=== PATIENT | male | born 1945 | race American Indian/Alaskan Native ===

== ENCOUNTER 2020-05-29 13:39 | Inpatient (IN) | payer MEDICARE ==
[2020-05-29 14:42] LABS: Hematocrit 25.2 % (35.5-45.6); Hemoglobin 7.6 gm/dl (11.8-15.2); Mean Corpuscular HGB Conc 30 % (32-34); Mean Corpuscular Volume 72 fl (84-94); Platelet Count 198 K/mm3 (140-440); Red Blood Count 3.49 M/mm3 (3.65-5.03); Red Cell Distribution Width 19.9 % (13.2-15.2)
[2020-05-29 14:52] LABS: Calcium 9.1 mg/dL (8.4-10.2)
[2020-05-29 14:53] LABS: INR 1.54 (0.87-1.13)
--- NOTE | 2020-05-29 15:02 | XRay Report ---
CHEST 2 VIEWS INDICATION / CLINICAL INFORMATION: CHF. COMPARISON: None available. FINDINGS: SUPPORT DEVICES: None. HEART / MEDIASTINUM: There is mild cardiomegaly. There has been previous median sternotomy and mitral annular repair as well as possible CABG. LUNGS / PLEURA: There is mild pulmonary vascular congestion. There is no pleural effusion. No pneumot horax. ADDITIONAL FINDINGS: No significant additional findings. IMPRESSION: 1. Mild cardiomegaly and pulmonary vascular congestion that could indicate mild CHF. Signer Name: Deo Germain MD Signed: 05/29/2020 2:57 PM Workstation Name: [id number]
[2020-05-29] MEDS ORDERED: amLODIPine 10 MG TAB PO STA (17:17)
[2020-05-29] MEDS ORDERED: hydrALAZINE 25 MG TAB PO STA (17:17)
[2020-05-29] MEDS ORDERED: FUROSEMIDE 40 MG TAB PO STA (17:17)
[2020-05-29] MEDS ORDERED: ASPIRIN EC 325 MG TAB PO STA (17:17)
--- NOTE | 2020-05-29 17:24 | Emergency Department Report ---
ED General Adult HPI - General Chief complaint: Dyspnea/Respdistress Stated complaint: DIFFICULTY BREATHING/ANKLE SWOLLEN PUI?: No Time Seen by Provider: 05/29/20 17:02 Source: patient, RN notes reviewed, old records reviewed Mode of arrival: Ambulatory Limitations: No Limitations - History of Present Illness Initial comments: The patient was evaluated in the emergency department for symptoms described in the history of present illness. He/she was evaluated in the context of the global COVID-19 pandemic, which necessitated consideration that the patient might be at risk for infection with the virus that causes COVID-19. Institutional protocols and algorithms that pertain to the evaluation of patients at risk for COVID-19 are in a state of rapid change based on information released by regulatory bodies including the CDC and federal and state organizations. These policies and algorithms were followed during the patient's care in the emergency department. Please note that these policies, procedures and recommendations changed on a rapid basis. Patient is a 74-year-old gentleman. He is not known to myself previously. 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 He was previously followed in [place], and ran out of his prescription medications in February. He presents to the ER today with a primary complaint of painless shortness of breath. This has been present since February, therefore, symptoms present for 3-1/2 to 4 months. He denies headache, neck pain, chest pain, abdominal pain, he has exertional shortness of breath, orthopnea, "trouble sleeping at night", unintentional 10 pound gain, and lower extremity swelling. He denies DVT and pulmonary embolism risk factors. No colonoscopy that he is aware of. No hematemesis or bright red blood per rectum. -: Gradual, month(s) Location: left, right, lower extremity Severity scale (0 -10): 0 Consistency: constant Improves with: rest Worsens with: movement - Related Data Previous Rx's Medication Instructions Recorded Last Taken Type Potassium Chloride [K-Dur] 20 meq PO QDAY #30 tablet 10/29/15 Unknown Rx amLODIPine 10 mg PO DAILY #30 tablet 10/29/15 Unknown Rx Aspirin EC [Ecotrin] 325 mg PO QDAY #30 tablet 05/29/20 Unknown Rx Furosemide [Lasix TAB] 40 mg PO BID #60 tablet 05/29/20 Unknown Rx Metoprolol [Lopressor TAB] 50 mg PO BID #60 tablet 05/29/20 Unknown Rx amLODIPine 10 mg PO NOW #30 tablet 05/29/20 Unknown Rx hydrALAZINE [Apresoline TAB] 50 mg PO BID #60 tablet 05/29/20 Unknown Rx Allergies Allergy/AdvReac Type Severity Reaction Status Date / Time No Known Allergies Allergy Verified 10/24/15 00:53 ED Review of Systems ROS: Stated complaint: DIFFICULTY BREATHING/ANKLE SWOLLEN Other details as noted in HPI Constitutional: denies: fever Eyes: denies: eye discharge, vision change ENT: denies: epistaxis Respiratory: shortness of breath, SOB with exertion, SOB at rest Cardiovascular: dyspnea on exertion, orthopnea, edema. denies: chest pain, syncope Gastrointestinal: denies: nausea, vomiting, hematemesis, melena, hematochezia Genitourinary: denies: dysuria Musculoskeletal: myalgia Neurological: denies: headache, weakness Hematological/Lymphatic: denies: easy bleeding ED Past Medical Hx - Past Medical History Hx Heart Attack/AMI: Yes Hx Congestive Heart Failure: Yes - Surgical History Past Surgical History?: Yes Additional Surgical History: Open heart surgery - Social History Smoking Status: Never Smoker - Medications Home Medications: Home Medications Medication Instructions Recorded Confirmed Last Taken Type Potassium Chloride [K-Dur] 20 meq PO QDAY #30 tablet 10/29/15 Unknown Rx amLODIPine 10 mg PO DAILY #30 tablet 10/29/15 Unknown Rx Aspirin EC [Ecotrin] 325 mg PO QDAY #30 tablet 05/29/20 Unknown Rx Furosemide [Lasix TAB] 40 mg PO BID #60 tablet 05/29/20 Unknown Rx Metoprolol [Lopressor TAB] 50 mg PO BID #60 tablet 05/29/20 Unknown Rx amLODIPine 10 mg PO NOW #30 tablet 05/29/20 Unknown Rx hydrALAZINE [Apresoline TAB] 50 mg PO BID #60 tablet 05/29/20 Unknown Rx ED Physical Exam - General Limitations: No Limitations General appearance: alert, in no apparent distress - Head Head exam: Present: atraumatic, normocephalic - Eye Eye exam: Present: normal appearance, EOMI. Absent: nystagmus - ENT ENT exam: Present: normal exam, normal orophraynx, mucous membranes moist - Neck Neck exam: Present: normal inspection, full ROM. Absent: tenderness, meningismus - Respiratory Respiratory exam: Present: normal lung sounds bilaterally. Absent: respiratory distress, wheezes, rales, rhonchi, stridor - Cardiovascular Cardiovascular Exam: Present: normal rhythm, tachycardia, systolic murmur, JVD. Absent: diastolic murmur, rubs, gallop - GI/Abdominal GI/Abdominal exam: Present: soft. Absent: distended, tenderness, guarding, rebound, rigid, pulsatile mass - Rectal Rectal exam: Present: deferred - Extremities Exam Extremities exam: Present: normal inspection, full ROM, pedal edema (3+ edema in the bilateral lower extremities), other (2+ pulses noted in the bilateral upper and lower extremities. There is no palpable cord. negative Homans sign. Muscular compartments are soft. The pelvis is stable.). Absent: calf te nderness - Back Exam Back exam: Present: normal inspection, full ROM. Absent: tenderness, CVA tenderness (R), CVA tenderness (L), paraspinal tenderness, vertebral tenderness - Neurological Exam Neurological exam: Present: alert, oriented X3, normal gait, other (No facial droop. Tongue midline. Extraocular movements intact bilaterally. Facial sensation intact to light touch in V1, V2, V3 distribution bilaterally. 5 and a 5 strength in 4 extremities. Sensation intact to light touch in 4 extremities.). Absent: motor sensory deficit - Psychiatric Psychiatric exam: Present: normal affect, normal mood - Skin Skin exam: Present: warm, dry, intact, normal color. Absent: rash ED Course Vital Signs 05/29/20 14:12 Temperature 97.8 F Pulse Rate 107 H Respiratory 20 Rate Blood Pressure 171/100 [Right] O2 Sat by Pulse 96 Oximetry - Reevaluation(s) Reevaluation #1: 05/29/20 17:53 Patient has changed his mind about being admitted. He is now amenable to hospitalization. High-dose IV Lasix ordered. Hospital physician, Dr. Xavier Ibarra to admit He requested cardiology consultation. - Consultations Consultation #1: 05/29/20 17:59 Discussed history, physical, and pertinent findings with cardiology on-call, Dr. Clement, who is in agreement with plan of care, and they are agreeable to see the patient in the morning. ED Medical Decision Making - Lab Data Result diagrams: 05/29/20 14:35 05/29/20 14:35 Vital Signs 05/29/20 14:12 Temperature 97.8 F Pulse Rate 107 H Respiratory 20 Rate Blood Pressure 171/100 [Right] O2 Sat by Pulse 96 Oximetry Lab Results 05/29/20 05/29/20 05/29/20 Range/Units 14:35 14:35 14:35 WBC 8.8 (4.5-11.0) K/mm3 RBC 3.49 L (3.65-5.03) M/mm3 Hgb 7.6 L (11.8-15.2) gm/dl Hct 25.2 L (35.5-45.6) % MCV 72 L (84-94) fl MCH 22 L (28-32) pg MCHC 30 L (32-34) % RDW 19.9 H (13.2-15.2) % Plt Count 198 (140-440) K/mm3 PT 18.7 H (12.2-14.9) Sec. INR 1.54 H (0.87-1.13) Sodium 142 (137-145) mmol/L Potassium 4.6 (3.6-5.0) mmol/L Chloride 105.5 (98-107) mmol/L Carbon Dioxide 19 L (22-30) mmol/L Anion Gap 22 mmol/L BUN 37 H (9-20) mg/dL Creatinine 2.1 H (0.8-1.3) mg/dL Estimated GFR 38 ml/min BUN/Creatinine Ratio 18 % Glucose 84 (75-100) mg/dL Calcium 9.1 (8.4-10.2) mg/dL Magnesium (1.7-2.3) mg/dL Total Creatine Kinase (55-170) units/L NT-Pro-B Natriuret Pep (0-900) pg/mL 05/29/20 05/29/20 Range/Units 14:35 14:35 WBC (4.5-11.0) K/mm3 RBC (3.65-5.03) M/mm3 Hgb (11.8-15.2) gm/dl Hct (35.5-45.6) % MCV (84-94) fl MCH (28-32) pg MCHC (32-34) % RDW (13.2-15.2) % Plt Count (140-440) K/mm3 PT (12.2-14.9) Sec. INR (0.87-1.13) Sodium (137-145) mmol/L Potassium (3.6-5.0) mmol/L Chloride (98-107) mmol/L Carbon Dioxide (22-30) mmol/L Anion Gap mmol/L BUN (9-20) mg/dL Creatinine (0.8-1.3) mg/dL Estimated GFR ml/min BUN/Creatinine Ratio % Glucose (75-100) mg/dL Calcium (8.4-10.2) mg/dL Magnesium 1.90 (1.7-2.3) mg/dL Total Creatine Kinase 213 H (55-170) units/L NT-Pro-B Natriuret Pep 4714 H (0-900) pg/mL - EKG Data 05/29/20 17:22 Sinus rhythm, tachycardia, 108 bpm, interventricular conduction delay, left axis deviation, borderline left anterior fascicular block, the EKG is abnormal, the EKG is not a STEMI. - Radiology Data Radiology results: report reviewed, image reviewed Print Report Referring Physician: YASHIRA JONES Patient Name: ROBERT FREEDMAN Date of : 1945 Sex: Male Report Date: 2020-05-29 Report Status: Finalized Findings [address] [address] XRay Report Signed Patient: ROBERT FREEDMAN MR#: [id number] : 1945 Acct:[id number] Age/Sex: 74 / M ADM Date: 05/29/20 Loc: ED Attending Dr: Ordering Physician: YASHIRA JONES MD Date of Service: 05/29/20 Procedure(s): XR chest routine 2V Accession Number(s): [id number] cc: YASHIRA JONES MD Fluoro Time In Minutes: CHEST 2 VIEWS INDICATION / CLINICAL INFORMATION: CHF. COMPARISON: None available. FINDINGS: SUPPORT DEVICES: None. HEART / MEDIASTINUM: There is mild cardiomegaly. There has been previous median sternotomy and mitral annular repair as well as possible CABG. LUNGS / PLEURA: There is mild pulmonary vascular congestion. There is no pleural effusion. No pneumothorax. ADDITIONAL FINDINGS: No significant additional findings. IMPRESSION: 1. Mild cardiomegaly and pulmonary vascular congestion that could indicate mild CHF. Signer Name: Deo Germain MD Signed: 05/29/2020 2:57 PM Wor kstation Name: [id number] Transcribed By: YESSY Dictated By: Deo Germain MD Electronically Authenticated By: Deo Germain MD Signed Date/Time: 05/29/201456 DD/ 55 TD/TT: - Medical Decision Making Differential diagnosis, include but not limited to: Congestive heart failure, cardiorenal syndrome, hypertensive cardiomyopathy, microcytic anemia, noncompliance, medication refill Assessment and plan: 74-year-old gentleman, who denies DVT and pulmonary embolism risk factors, presenting with decompensated hypertensive urgency, and clinical acute congestive heart failure, manifest by JVD, lower extremity edema, orthopnea, dyspnea. I strongly recommended admission to the medical service for optimization. Patient is refusing admission at this time, stating that "there are some things I have to take care of at home before I get admitted." The patient is amenable to oral medications, discharged with oral medications, and states that he will return to the emergency room right away once he takes care of his home obligations. I explicitly explained to the patient that I felt this course of action is unsafe, and not recommended, therefore, the patient will sign out AGAINST MEDICAL ADVICE. The patient is pleasant, calm and cooperative, alert, oriented, clinically sober, exhibits decision-making capacity, and is free from distracting injury. He states he is reliable to return to the emergency room right away. Therefore, I will give him oral medications in the ER, as he is declining IV placement, I will refill prescriptions, discharge AGAINST MEDICAL ADVICE, patient states he will return as soon as possible Microcytic anemia reviewed and appreciated. Patient states no history of colonoscopy, he denies hematemesis, bright red blood per rectum. He denies black tarry stools. If he elects to return to this hospital, this can be further worked up/evaluated on the inpatient side of things. Otherwise, he can follow-up with outpatient primary care/gastroenterology. Critical Care Time: Yes Critical care time in (mins) excluding proc time.: 35 Critical care attestation.: If time is entered above; I have spent that time in minutes in the direct care of this critically ill patient, excluding procedure time. ED Disposition Clinical Impression: Hypertension, Renal insufficiency, CHF (congestive heart failure), Medication refill, Anemia Disposition: OP ADMIT IP TO THIS HOSP Is pt being admited?: Yes Does the pt Need Aspirin: No Condition: Serious Instructions: Hypertension (ED) Additional Instructions: As we discussed, you have left the hospital/emergency room AGAINST MEDICAL ADVICE. By leaving, you risked , disability, paralysis, permanent loss of quality of life. The ER is open 24 hours a day, 7 days a week. It never closes. Please return to the emergency room right away if and when you change your mind. If you decide not to return to the emergency room, please follow-up with the listed physician referrals as soon as possible. Do not take Motrin, ibuprofen, Naprosyn, Aleve. Patient should follow-up with a primary care doctor or manager change for anemia within the next month. 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 Prescriptions: amLODIPine 10 mg PO NOW #30 tablet hydrALAZINE [Apresoline TAB] 50 mg PO BID #60 tablet Aspirin EC [Ecotrin] 325 mg PO QDAY #30 tablet Furosemide [Lasix TAB] 40 mg PO BID #60 tablet Metoprolol [Lopressor TAB] 50 mg PO BID #60 tablet Referrals: CHRISTIANO NDIAYE MD [Staff Physician] - 3-5 Days GEOFFREY VILLARREAL MD [Staff Physician] - 3-5 Days DEMAR BROWN MD [Staff Physician] - 3-5 Days JOSE ALFREDO COSBY MD [Staff Physician] - 3-5 Days CLEM LYNN MD [Staff Physician] - 3-5 Days
[2020-05-29] MEDS ORDERED: FUROSEMIDE 40 MG/4 ML INJ IV ONE (17:52)
[2020-05-29] MEDS ORDERED: amLODIPine 10 MG TAB ONE (18:51)
[2020-05-29] MEDS ORDERED: FUROSEMIDE 40 MG/4 ML INJ ONE (18:52)
[2020-05-29] MEDS ORDERED: FUROSEMIDE 20 MG/2 ML INJ ONE (18:52)
[2020-05-29] MEDS ORDERED: hydrALAZINE 25 MG TAB ONE (18:53)
[2020-05-29] MEDS ORDERED: ASPIRIN EC 325 MG TAB PO ONE (18:53)
[2020-05-29] MEDS ORDERED: oxyCODONE /ACETAMINOPHEN 5-325MG TAB PO PRN (23:24)
[2020-05-29] MEDS ORDERED: METOCLOPRAMIDE 10 MG/2 ML INJ IV PRN ×2 (23:24→23:41)
[2020-05-29] MEDS ORDERED: ONDANSETRON 4 MG/2 ML INJ IV PRN ×2 (23:24→23:29)
[2020-05-29] MEDS ORDERED: HYDROmorphone 1 MG/1 ML INJ IV PRN (23:24)
[2020-05-29] MEDS ORDERED: IBUPROFEN 600 MG TAB PO PRN (23:24)
[2020-05-29] MEDS ORDERED: ACETAMINOPHEN 325 MG TAB PO PRN ×2 (23:24→23:29)
--- NOTE | 2020-05-29 23:32 | History and Physical Report ---
History of Present Illness Date of examination: 05/29/20 Date of admission: 05/29/20 17:55 Chief complaint: Shortness of breath for 1 week History of present illness: 74-year-old male with history of congestive heart failure, hypertension, renal insufficiency and mitral valve regurgitation molding from [facility] to [place] in February. Patient ran out of his medicines in February and since then patient has not been taking any medications. Patient comes in for increasing shortness of breath and orthopnea. Patient has class IV NYHA symptoms. Patient also has lower extremity swelling. Patient has trouble lying flat. Unable to sleep because of the inability to lie flat. PND attacks. No chest pain. No exposure to coronavirus. No fever chills. No cough. Patient is a 74-year-old gentleman. He is not known to myself previously. - Past Medical History Hx Heart Attack/AMI: Yes Hx Congestive Heart Failure: Yes - Surgical History Past Surgical History?: Yes Additional Surgical History: Open heart surgery - Social History Smoking Status: Never Smoker Family history Htn - Medications Home Medications: Home Medications Medication Instructions Recorded Confirmed Last Taken Type Potassium Chloride [K-Dur] 20 meq PO QDAY #30 tablet 10/29/15 Unknown Rx amLODIPine 10 mg PO DAILY #30 tablet 10/29/15 Unknown Rx Aspirin EC [Ecotrin] 325 mg PO QDAY #30 tablet 05/29/20 Unknown Rx Furosemide [Lasix TAB] 40 mg PO BID #60 tablet 05/29/20 Unknown Rx Metoprolol [Lopressor TAB] 50 mg PO BID #60 tablet 05/29/20 Unknown Rx amLODIPine 10 mg PO NOW #30 tablet 05/29/20 Unknown Rx hydrALAZINE [Apresoline TAB] 50 mg PO BID #60 tablet 05/29/20 Unknown Rx Review of Systems ROS: Stated complaint: DIFFICULTY BREATHING/ANKLE SWOLLEN Other details as noted in HPI Constitutional: denies: fever Eyes: denies: eye discharge, vision change ENT: denies: epistaxis Respiratory: shortness of breath, SOB with exertion, SOB at rest Cardiovascular: dyspnea on exertion, orthopnea, edema. denies: chest pain, syncope Gastrointestinal: denies: nausea, vomiting, hematemesis, melena, hematochezia Genitourinary: denies: dysuria Musculoskeletal: myalgia Neurological: denies: headache, weakness Hematological/Lymphatic: denies: easy bleeding Medications and Allergies Allergies Allergy/AdvReac Type Severity Reaction Status Date / Time No Known Allergies Allergy Verified 10/24/15 00:53 Home Medications Medication Instructions Recorded Confirmed Last Taken Type Potassium Chloride [K-Dur] 20 meq PO QDAY #30 tablet 10/29/15 Unknown Rx amLODIPine 10 mg PO DAILY #30 tablet 10/29/15 Unknown Rx Aspirin EC [Ecotrin] 325 mg PO QDAY #30 tablet 05/29/20 Unknown Rx Furosemide [Lasix TAB] 40 mg PO BID #60 tablet 05/29/20 Unknown Rx Metoprolol [Lopressor TAB] 50 mg PO BID #60 tablet 05/29/20 Unknown Rx amLODIPine 10 mg PO NOW #30 tablet 05/29/20 Unknown Rx hydrALAZINE [Apresoline TAB] 50 mg PO BID #60 tablet 05/29/20 Unknown Rx Exam - Constitutional Vitals: Temp Pulse Resp BP Pulse Ox 98.2 F 110 H 14 171/100 99 05/29/20 21:45 05/29/20 21:45 05/29/20 21:45 05/29/20 21:45 05/29/20 21:45 General appearance: Present: mild distress, well-nourished - EENT Eyes: Present: PERRL ENT: hearing intact, clear oral mucosa - Neck Neck: Present: supple, normal ROM - Respiratory Respiratory effort: normal Respiratory: bilateral: CTA, rales (Basal rales) - Cardiovascular Heart rate: 88 Rhythm: regular Heart Sounds: Present: S1 & S2. Absent: rub, click - Extremities Extremities: pulses symmetrical, No edema, abnormal (3+ pedal edema) Extremity abnormal: other (3+ pedal edema) Peripheral Pulses: within normal limits - Abdominal General gastrointestinal: Present: soft, non-tender, non-distended, normal bowel sounds Male genitourinary: Present: normal - Integumentary Integumentary: Present: clear, warm, dry - Musculoskeletal Musculoskeletal: gait normal, strength equal bilaterally - Psychiatric Psychiatric: appropriate mood/affect, intact judgment & insight - Neurologic Neurologic: CNII-XII intact, moves all extremities - Allied Health Allied health notes reviewed: nursing, case management HEART Score - HEART Score History: Moderately suspicious Age: > 65 Risk factors: > 3 risk factors or hx of atherosclerotic disease Troponin: < normal limit - Critical Actions Critical Actions: 4-6 pts:12-16.6% risk of adverse cardiac event. Should be admitted Results - Labs CBC & Chem 7: 05/29/20 14:35 05/29/20 14:35 Labs: Laboratory Last Values WBC 8.8 K/mm3 (4.5-11.0) 05/29/20 14:35 RBC 3.49 M/mm3 (3.65-5.03) L 05/29/20 14:35 Hgb 7.6 gm/dl (11.8-15.2) L 05/29/20 14:35 Hct 25.2 % (35.5-45.6) L 05/29/20 14:35 MCV 72 fl (84-94) L 05/29/20 14:35 MCH 22 pg (28-32) L 05/29/20 14:35 MCHC 30 % (32-34) L 05/29/20 14:35 RDW 19.9 % (13.2-15.2) H 05/29/20 14:35 Plt Count 198 K/mm3 (140-440) 05/29/20 14:35 PT 18.7 Sec. (12.2-14.9) H 05/29/20 14:35 INR 1.54 (0.87-1.13) H 05/29/20 14:35 Sodium 142 mmol/L (137-145) 05/29/20 14:35 Potassium 4.6 mmol/L (3.6-5.0) 05/29/20 14:35 Chloride 105.5 mmol/L (98-107) 05/29/20 14:35 Carbon Dioxide 19 mmol/L (22-30) L 05/29/20 14:35 Anion Gap 22 mmol/L 05/29/20 14:35 BUN 37 mg/dL (9-20) H 05/29/20 14:35 Creatinine 2.1 mg/dL (0.8-1.3) H 05/29/20 14:35 Estimated GFR 38 ml/min 05/29/20 14:35 BUN/Creatinine Ratio 18 % 05/29/20 14:35 Glucose 84 mg/dL (75-100) 05/29/20 14:35 Calcium 9.1 mg/dL (8.4-10.2) 05/29/20 14:35 Magnesium 1.90 mg/dL (1.7-2.3) 05/29/20 14:35 Total Creatine Kinase 213 units/L (55-170) H 05/29/20 14:35 NT-Pro-B Natriuret Pep 4714 pg/mL (0-900) H 05/29/20 14:35 - Imaging and Cardiology EKG: report reviewed (Sinus tachycardia heart rate of 100/min) Chest x-ray: report reviewed ( no acute ST-T wave changes) Imaging and Cardiology: Chest x-ray Mild cardiomegaly and pulmonary vascular congestion that could indicate mild CHF Assessment and Plan Advance Directives: Yes (Full code) VTE prophylaxis?: Chemical Plan of care discussed with patient/family: Yes - Patient Problems (1) Acute exacerbation of CHF (congestive heart failure) Current Visit: Yes Status: Acute Qualifiers: Heart failure type: combined systolic and diastolic Qualified Code(s): I50.43 - Acute on chronic combined systolic (congestive) and diastolic (congestive) heart failure Plan to address problem: Patient initiated on IV Lasix twice a day Daily weights Intake output Echocardiogram for ejection fraction Cardiology consult (2) Anemia Current Visit: Yes Status: Chronic Qualifiers: Anemia type: unspecified type Qualified Code(s): D64.9 - Anemia, unspecified Plan to address problem: Anemia work-up (3) Hypertension Current Visit: Yes Status: Chronic Qualifiers: Hypertension type: essential hypertension Qualified Code(s): I10 - Essential (primary) hypertension Plan to address problem: Continue antihypertensives and adjust medications (4) Acute kidney injury Current Visit: No Status: Acute Plan to address problem: Nephrology consulted (5) DVT prophylaxis Current Visit: Yes Status: Acute Plan to address problem: On Lovenox and GI prophylaxis
[2020-05-29] MEDS ORDERED: POTASSIUM CHLORIDE ER 20 MEQ TAB PO SCH (23:45)
[2020-05-30] MEDS: FUROSEMIDE 40 MG/4 ML INJ IV SCH ×2 (05:56→17:46)
[2020-05-30] MEDS ORDERED: hydrALAZINE 25 MG TAB PO SCH (06:00)
[2020-05-30 06:55] LABS: Basophils # (Auto) 0.1 K/mm3 (0.0-0.1); Basophils % (Auto) 0.7 % (0.0-1.8); Eosinophils # (Auto) 0.1 K/mm3 (0.0-0.4); Eosinophils % (Auto) 1.2 % (0.0-4.3); Hematocrit 25.5 % (35.5-45.6); Hemoglobin 7.6 gm/dl (11.8-15.2); Lymphocytes # (Auto) 1.3 K/mm3 (1.2-5.4); Lymphocytes % (Auto) 14.8 % (13.4-35.0); Mean Corpuscular HGB Conc 30 % (32-34); Mean Corpuscular Volume 72 fl (84-94); Monocytes # (Auto) 0.8 K/mm3 (0.0-0.8); Platelet Count 171 K/mm3 (140-440); Red Blood Count 3.52 M/mm3 (3.65-5.03); Red Cell Distribution Width 19.5 % (13.2-15.2)
[2020-05-30 07:22] LABS: Albumin 3.5 g/dL (3.9-5); Calcium 9.1 mg/dL (8.4-10.2)
[2020-05-30 08:41] LABS: % Iron Saturation 3.5 %
[2020-05-30] MEDS ORDERED: FAMOTIDINE 20 MG TAB PO SCH (10:00)
[2020-05-30] MEDS: FAMOTIDINE 10 MG TAB PO SCH ×2 (10:23→21:40)
--- NOTE | 2020-05-30 13:52 | Consultation ---
History of Present Illness Consult date: 05/30/20 Requesting physician: YASHIRA JONES Consult reason: congestive heart failure History of present illness: The pt is a 74 YO male with a past medical history of severe MR, s/p MV repair in [place] in March,, HFpEF, HTN, pulm HTN, renal insufficiency. He is followed in our office by Dr. Maldonado (last seen 06/2019). He presented with c/o SOB, BLE swelling and generalized fatigue. His symptoms have been progressively worsening since February 2020, he has not taken any prescription medications since that time. He denies any chest pain, palpitations, n/v, diaphoresis, dizziness or syncope. tte done 06/2018 showed EF 55%, severe MR. Lexiscan MPI stress test done 10/2015 was negative for significant ischemia, fixed defect suggestive of prior inferior DE, EF 40%. Past History Past Medical History: other (as per HPI) Medications and Allergies Allergies Allergy/AdvReac Type Severity Reaction Status Date / Time No Known Allergies Allergy Verified 10/24/15 00:53 Home Medications Medication Instructions Recorded Confirmed Last Taken Type Potassium Chloride [K-Dur] 20 meq PO QDAY #30 tablet 10/29/15 Unknown Rx amLODIPine 10 mg PO DAILY #30 tablet 10/29/15 Unknown Rx Aspirin EC [Ecotrin] 325 mg PO QDAY #30 tablet 05/29/20 Unknown Rx Furosemide [Lasix TAB] 40 mg PO BID #60 tablet 05/29/20 Unknown Rx Metoprolol [Lopressor TAB] 50 mg PO BID #60 tablet 05/29/20 Unknown Rx amLODIPine 10 mg PO NOW #30 tablet 05/29/20 Unknown Rx hydrALAZINE [Apresoline TAB] 50 mg PO BID #60 tablet 05/29/20 Unknown Rx Active Meds: Active Medications Acetaminophen (Tylenol) 650 mg PO Q4H PRN PRN Reason: Pain MILD(1-3)/Fever >100.5/[facility] Enoxaparin Sodium (Enoxaparin) 30 mg SUB-Q QDAY@2200 [facility]; Protocol Famotidine (Pepcid) 10 mg PO BID [facility] Last Admin: 05/30/20 10:23 Dose: 10 mg Documented by: Furosemide (Lasix) 40 mg IV 0600,1800 [facility] Last Admin: 05/30/20 05:56 Dose: 40 mg Documented by: Hydralazine HCl (Apresoline) 50 mg PO BID [facility] Last Admin: 05/30/20 05:55 Dose: 50 mg Documented by: Hydromorphone HCl (Dilaudid) 0.5 mg IV Q3H PRN PRN Reason: Pain , Severe (7-10) Ibuprofen (Ibuprofen) 600 mg PO Q6H PRN PRN Reason: Pain, Mild (1-3) Metoclopramide HCl (Reglan) 5 mg IV Q6H PRN PRN Reason: Nausea And Vomiting Ondansetron HCl (Zofran) 4 mg IV Q8H PRN PRN Reason: Nausea And Vomiting Oxycodone/Acetaminophen (Percocet 5/325) 1 tab PO Q6H PRN PRN Reason: Pain, Moderate (4-6) Potassium Chloride (K-Dur) 20 meq PO QDAY [facility] Sodium Chloride (Sodium Chloride Flush Syringe 10 Ml) 10 ml IV BID [facility] Last Admin: 05/30/20 10:24 Dose: 10 ml Documented by: Sodium Chloride (Sodium Chloride Flush Syringe 10 Ml) 10 ml IV PRN PRN PRN Reason: LINE FLUSH Review of Systems Constitutional: no fever, no chills, no sweats Ears, nose, mouth and throat: no ear pain, no nose pain, no sinus pressure, no sinus pain Cardiovascular: orthopnea, edema, shortness of breath, dyspnea on exertion, high blood pressure, leg edema, decreased exercise tolerance, no chest pain, no palpitations, no rapid/irregular heart beat, no syncope, no lightheadedness Respiratory: shortness of breath, dyspnea on exertion, no cough, no congestion, no wheezing, no pain on inspiration Gastrointestinal: no abdominal pain, no nausea, no vomiting, no diarrhea, no constipation, no change in bowel habits Genitourinary Male: no dysuria, no hematuria, no flank pain, no discharge, no urinary frequency, no urinary hesitancy Musculoskeletal: no neck stiffness, no neck pain, no shooting arm pain, no arm numbness/tingling, no low back pain, no shooting leg pain Integumentary: no rash, no pruritis, no redness, no sores, no wounds Neurological: no head injury, no paralysis, no weakness, no parathesias, no numbness, no tingling, no seizures, no syncope Psychiatric: no anxiety Endocrine: no cold intolerance, no heat intolerance Hematologic/Lymphatic: no easy bruising, no easy bleeding Allergic/Immunologic: no urticaria Physical Examination Vital Signs Temp Pulse Resp BP Pulse Ox 97.8 F 107 H 20 171/100 96 05/29/20 14:12 05/29/20 14:12 05/29/20 14:12 05/29/20 14:12 05/29/20 14:12 General appearance: no acute distress HEENT: Positive: PERRL, Normocephaly, Mucus Membranes Moist Neck: Positive: neck supple, trachea midline Cardiac: Positive: Reg Rate and Rhythm, S1/S2 Lungs: Positive: Decreased Breath Sounds Neuro: Positive: Grossly Intact Abdomen: Negative: Tender Skin: Negative: Rash Musculoskeletal: No Pain Extremities: Present: +1 Edema (BLE) Results 05/30/20 05:47 05/30/20 05:47 Cardiac Enzymes 05/30/20 Range/Units 05:47 AST 101 H (5-40) units/L Coagulation 05/29/20 Range/Units 14:35 PT 18.7 H (12.2-14.9) Sec. INR 1.54 H (0.87-1.13) CBC 05/29/20 05/30/20 Range/Units 14:35 05:47 WBC 8.8 8.9 (4.5-11.0) K/mm3 RBC 3.49 L 3.52 L (3.65-5.03) M/mm3 Hgb 7.6 L 7.6 L (11.8-15.2) gm/dl Hct 25.2 L 25.5 L (35.5-45.6) % Plt Count 198 171 (140-440) K/mm3 Lymph # (Auto) 1.3 (1.2-5.4) K/mm3 [place] # (Auto) 0.8 (0.0-0.8) K/mm3 Eos # (Auto) 0.1 (0.0-0.4) K/mm3 Baso # (Auto) 0.1 (0.0-0.1) K/mm3 Comprehensive Metabolic Panel 05/29/20 05/30/20 Range/Units 14:35 05:47 Sodium 142 144 (137-145) mmol/L Potassium 4.6 4.4 (3.6-5.0) mmol/L Chloride 105.5 104.0 (98-107) mmol/L Carbon Dioxide 19 L 24 (22-30) mmol/L BUN 37 H 39 H (9-20) mg/dL Creatinine 2.1 H 1.9 H (0.8-1.3) mg/dL Glucose 84 90 (75-100) mg/dL Calcium 9.1 9.1 (8.4-10.2) mg/dL AST 101 H (5-40) units/L ALT 122 H (7-56) units/L Alkaline Phosphatase 62 (35-129) units/L Total Protein 6.4 (6.3-8.2) g/dL Albumin 3.5 L (3.9-5) g/dL - Imaging and Cardiology Echo: report reviewed ( 06/2018 showed EF 55%, severe MR. ) EKG: report reviewed, image reviewed EKG interpretations - Telemetry EKG Rhythm: Sinus Rhythm - EKG Sinus rhythms and dysrhythmias: sinus rhythm AV and intraventricular conduction: intraventricular conducti Assessment and Plan tte reviewed - EF 35-40%, mild LVH, impaired relaxation, mild mitral leaflet paradise cification, s/p MV repair, mod MR, mod pulm HTN. EF is reduced from prior tte. Agree with present cardiac management. No ACEI/ARB at this time in setting of renal insufficiency. F/u BMP in AM. Plan for lexican MPI stress test in AM for further evaluation of cardiomyopathy. NPO after MN. Will follow. The patient has been seen in conjunction with Dr. Mohsen Carrillo who agrees with the assessment and plan of care. - Patient Problems (1) Acute HFrEF (heart failure with reduced ejection fraction) Current Visit: Yes Status: Acute (2) Cardiomyopathy Current Visit: Yes Status: Acute (3) S/P mitral valve repair Current Visit: Yes Status: Chronic (4) Uncontrolled hypertension Current Visit: Yes Status: Acute (5) Acute on chronic renal insufficiency Current Visit: Yes Status: Acute (6) Anemia Current Visit: Yes Status: Chronic Qualifiers: Anemia type: unspecified type Qualified Code(s): D64.9 - Anemia, unspecified (7) Medical non-compliance Current Visit: Yes Status: Chronic
--- NOTE | 2020-05-30 15:45 | Progress Note ---
Assessment and Plan -- Acute exacerbation of systolic CHF (congestive heart failure) Patient initiated on IV Lasix twice a day Daily weights Intake output Echocardiogram showed ejection fraction 30-35% Cardiology consult -- Anemia, chronic Anemia work-up -stool for occult blood, iron study ordered -- Hypertension Continue antihypertensives and adjust medications -- Acute kidney injury-cardiorenal syndrome? Likely acute on chronic kidney disease nephrology consulted -- severe MR, s/p MV repair in [place] in March, -- DVT prophylaxis On Lovenox and GI prophylaxis --Noncompliance, counseled 05/30: Continue IV Lasix, monitor ins and O's and daily weight. Cardiology consulted and follow recommendation. Plan for stress test tomorrow. Subjective Date of service: 05/30/20 Interval history: Patient seen and examined. Medical records and medication list reviewed. No acute event overnight noted by the RN. Patient denies any chest pain, has shortness of breath on exertion. Patient is tolerating diet. Complains of bilateral lower extremity swelling Discussed plan of care at bedside with patient. Objective - Exam Narrative Exam: GENERAL: well-developed and well-nourished -[place] male lying on bed appeared to be in no discomfort. HEENT: Normocephalic. Atraumatic. No conjunctival congestion or icterus. Patient has moist mucous membranes. NECK: Supple. Trachea midline. CHEST/LUNGS: Few crackles auscultated bilaterally, breathing nonlabored. No wheezes or rhonchi. HEART/CARDIOVASCULAR: Regular in rate and rhythm. S1 and S2 positive. ABDOMEN: Abdomen is soft, nontender. Patient has normal bowel sounds. SKIN: There is no rash. Warm and dry. NEURO: No focal motor deficit. Follows command. MUSCULOSKELETAL: No joint effusion or tenderness. EXTRIMITY: + Pitting edema bilaterally, no cyanosis or clubbing. PSYCH: Cooperative. - Constitutional Vitals: Vital Signs - 12hr 05/30/20 05/30/20 05/30/20 05:55 07:40 10:00 Temperature 97.0 F L Pulse Rate 100 H 102 H 101 H Respiratory 18 Rate Blood Pressure 175/100 147/83 Blood Pressure [Right] O2 Sat by Pulse 100 Oximetry 05/30/20 13:47 Temperature Pulse Rate 97 H Respiratory 18 Rate Blood Pressure Blood Pressure 110/57 [Right] O2 Sat by Pulse 93 Oximetry - Labs CBC & Chem 7: 05/30/20 05:47 05/31/20 04:57 Labs: Abnormal lab results 05/30/20 05/30/20 05/30/20 Range/Units 05:47 05:47 05:47 RBC 3.52 L (3.65-5.03) M/mm3 Hgb 7.6 L (11.8-15.2) gm/dl Hct 25.5 L (35.5-45.6) % MCV 72 L (84-94) fl MCH 22 L (28-32) pg MCHC 30 L (32-34) % RDW 19.5 H (13.2-15.2) % [place] % (Auto) 9.0 H (0.0-7.3) % Seg Neutrophils % 74.3 H (40.0-70.0) % BUN 39 H (9-20) mg/dL Creatinine 1.9 H (0.8-1.3) mg/dL Hemoglobin A1c < 4.0 L (4-6) % Iron (49-181) ug/dL TIBC (250-450) mcg/dL Transferrin (180-329) mg/dl Total Bilirubin 1.60 H (0.1-1.2) mg/dL AST 101 H (5-40) units/L ALT 122 H (7-56) units/L Albumin 3.5 L (3.9-5) g/dL Vitamin B12 (211-911) pg/mL 05/30/20 05/30/20 Range/Units 06:45 06:45 RBC (3.65-5.03) M/mm3 Hgb (11.8-15.2) gm/dl Hct (35.5-45.6) % MCV (84-94) fl MCH (28-32) pg MCHC (32-34) % RDW (13.2-15.2) % [place] % (Auto) (0.0-7.3) % Seg Neutrophils % (40.0-70.0) % BUN (9-20) mg/dL Creatinine (0.8-1.3) mg/dL Hemoglobin A1c (4-6) % Iron 16 L (49-181) ug/dL TIBC 457 H (250-450) mcg/dL Transferrin 389 H (180-329) mg/dl Total Bilirubin (0.1-1.2) mg/dL AST (5-40) units/L ALT (7-56) units/L Albumin (3.9-5) g/dL Vitamin B12 1168 H (211-911) pg/mL HEART Score - HEART Score Age: > 65 Risk factors: > 3 risk factors or hx of atherosclerotic disease Troponin: < normal limit - Critical Actions Critical Actions: 4-6 pts:12-16.6% risk of adverse cardiac event. Should be admitted
[2020-05-30 17:14] LABS: Iron 16 ug/dL (49-181); Total Iron Binding Capacity 457 mcg/dL (250-450)
--- NOTE | 2020-05-30 18:26 | Consultation ---
History of Present Illness - Reason for Consult acute renal failure - History of Present Illness Very pleasant 74 y/o AAM with h/o CKD III in the setting of HTN and CHF, who has seen my colleague, in the past, presented to the ED secondary to worsening shortness of breath and edema in the setting of CHF exacerbation. Patient presented to the ED with markedly worsening b/l LE swelling along with w orsening dyspnea on exertion. Nephrology consulted for JOSÉ MIGUEL on CKD. Past History Past Medical History: heart failure, hypertension, renal failure, other (severe MV regurgitation ) Past Surgical History: Other (mitral valve surgery ) Social history: no significant social history Family history: no significant family history Medications and Allergies Allergies Allergy/AdvReac Type Severity Reaction Status Date / Time No Known Allergies Allergy Verified 10/24/15 00:53 Home Medications Medication Instructions Recorded Confirmed Last Taken Type Potassium Chloride [K-Dur] 20 meq PO QDAY #30 tablet 10/29/15 Unknown Rx amLODIPine 10 mg PO DAILY #30 tablet 10/29/15 Unknown Rx Aspirin EC [Ecotrin] 325 mg PO QDAY #30 tablet 05/29/20 Unknown Rx Furosemide [Lasix TAB] 40 mg PO BID #60 tablet 05/29/20 Unknown Rx Metoprolol [Lopressor TAB] 50 mg PO BID #60 tablet 05/29/20 Unknown Rx amLODIPine 10 mg PO NOW #30 tablet 05/29/20 Unknown Rx hydrALAZINE [Apresoline TAB] 50 mg PO BID #60 tablet 05/29/20 Unknown Rx Active Meds: Active Medications Acetaminophen (Tylenol) 650 mg PO Q4H PRN PRN Reason: Pain MILD(1-3)/Fever >100.5/[facility] Carvedilol (Coreg) 6.25 mg PO BID [facility] Enoxaparin Sodium (Enoxaparin) 30 mg SUB-Q QDAY@2200 [facility]; Protocol Famotidine (Pepcid) 10 mg PO BID [facility] Last Admin: 05/30/20 10:23 Dose: 10 mg Documented by: Furosemide (Lasix) 40 mg IV 0600,1800 [facility] Last Admin: 05/30/20 17:46 Dose: 40 mg Documented by: Hydromorphone HCl (Dilaudid) 0.5 mg IV Q3H PRN PRN Reason: Pain , Severe (7-10) Ibuprofen (Ibuprofen) 600 mg PO Q6H PRN PRN Reason: Pain, Mild (1-3) Metoclopramide HCl (Reglan) 5 mg IV Q6H PRN PRN Reason: Nausea And Vomiting Ondansetron HCl (Zofran) 4 mg IV Q8H PRN PRN Reason: Nausea And Vomiting Oxycodone/Acetaminophen (Percocet 5/325) 1 tab PO Q6H PRN PRN Reason: Pain, Moderate (4-6) Potassium Chloride (K-Dur) 20 meq PO QDAY [facility] Sodium Chloride (Sodium Chloride Flush Syringe 10 Ml) 10 ml IV BID [facility] Last Admin: 05/30/20 10:24 Dose: 10 ml Documented by: Sodium Chloride (Sodium Chloride Flush Syringe 10 Ml) 10 ml IV PRN PRN PRN Reason: LINE FLUSH Review of Systems All systems: negative Constitutional: fatigue, weakness Cardiovascular: edema Exam - Vital Signs Vital signs: Vital Signs Temp Pulse Resp BP Pulse Ox 97.8 F 107 H 20 171/100 96 05/29/20 14:12 05/29/20 14:12 05/29/20 14:12 05/29/20 14:12 05/29/20 14:12 - General Appearance General appearance: well-nourished, appears stated age EENT: ATNC Neck: Present: neck supple, trachea midline Respiratory: Decreased Breath Sounds Heart: regular Gastrointestinal: Present: normal Integumentary: no rash Neurologic: no focal deficit, alert and oriented x3 Musculoskeletal: Present: other (2-3+ pitting edema ) Psychiatric: cooperative Results - Lab Results 05/30/20 05:47 05/30/20 05:47 Most recent lab results Calcium 9.1 mg/dL (8.4-10.2) 05/30/20 05:47 Magnesium 1.90 mg/dL (1.7-2.3) 05/29/20 14:35 Assessment and Plan - Patient Problems (1) Acute on chronic renal insufficiency Current Visit: Yes Status: Acute Plan to address problem: In the setting of A/C cardiorenal syndrome. Agree with aggressive diuretic regimen. Strict I/O, daily weight. Counseled on importance of low sodium diet and appropriate fluid restrictions. Will monitor daily. Will place order for urine electrolytes along with UA for further evaluation. (2) Hypertensive chronic kidney disease with stage 1 through stage 4 chronic kidney disease, or unspecified chronic kidney disease Current Visit: Yes Status: Chronic Plan to address problem: Monitor blood pressures on current regimen. (3) Acute exacerbation of CHF (congestive heart failure) Current Visit: Yes Status: Acute Qualifiers: Heart failure type: combined systolic and diastolic Qualified Code(s): I50.43 - Acute on chronic combined systolic (congestive) and diastolic (congestive) heart failure Plan to address problem: Agree with aggressive IV diuretic regimen. Appreciate cardiology recommendations. (4) Anemia Current Visit: Yes Status: Chronic Qualifiers: Anemia type: unspecified type Qualified Code(s): D64.9 - Anemia, unspecified Plan to address problem: Transfuse to maintain Hgb>7.0. No acute signs of GI bleed noted. Anemia workup per primary attending. Iron studies noted. Consider FOBT given significant changes in H/H from previous studies.
[2020-05-30] MEDS: carvediloL 6.25 MG TAB PO SCH (21:40)
[2020-05-30] MEDS: ENOXAPARIN 30 MG/0.3 ML INJ SUB-Q SCH (21:40)
[2020-05-31 06:07] LABS: Calcium 9.3 mg/dL (8.4-10.2)
[2020-05-31 06:14] LABS: Chloride, Urine 70.1 mmolL (110-250); Creatinine,Urine 111.2 mg/dL (0.1-20.0)
[2020-05-31 06:16] LABS: Bilirubin,Urine NEG (Negative); Blood,Urine SM (Negative); Color,Urine Yellow (Yellow); Mucus,Urine FEW /HPF; Protein,Urine <15 mg/dL mg/dL (Negative); Urobilinogen,Urine < 2.0 mg/dL (<2.0)
[2020-05-31] MEDS: FUROSEMIDE 40 MG/4 ML INJ IV SCH ×2 (07:41→18:17)
[2020-05-31] MEDS ORDERED: REGADENOSON 0.4 MG/5 ML INJ IV ONE ×2 (07:45→08:53)
[2020-05-31] MEDS: POTASSIUM CHLORIDE ER 20 MEQ TAB PO SCH (10:49)
[2020-05-31] MEDS: carvediloL 6.25 MG TAB PO SCH (10:50)
[2020-05-31] MEDS: FAMOTIDINE 10 MG TAB PO SCH ×2 (10:50→22:04)
--- NOTE | 2020-05-31 10:58 | Progress Note ---
Assessment and Plan S/p lexiscan MPI stress test today which was negative for ischemia, EF 30%. Optimize BPs - increase Coreg. No ACEI/ARB at this time in setting of renal insufficiency. Cont IV diuresis. Nephrology is following. F/u BMP in AM. W/u of anemia per primary team is in progress. The patient has been seen in conjunction with Dr. Mohsen Carrillo who agrees with the assessment and plan of care. - Patient Problems (1) Acute HFrEF (heart failure with reduced ejection fraction) Current Visit: Yes Status: Acute (2) Cardiomyopathy Current Visit: Yes Status: Acute (3) S/P mitral valve repair Current Visit: Yes Status: Chronic (4) Uncontrolled hypertension Current Visit: Yes Status: Acute (5) Acute on chronic renal insufficiency Current Visit: Yes Status: Acute (6) Anemia Current Visit: Yes Status: Chronic Qualifiers: Anemia type: unspecified type Qualified Code(s): D64.9 - Anemia, unspecified (7) Medical non-compliance Current Visit: Yes Status: Chronic (8) Transaminitis Current Visit: Yes Status: Acute Subjective Date of service: 05/31/20 Principal diagnosis: HF Interval history: pt for stress test, feeling better, still with BLE edema. in SR on tele with 4 beat run NSVT noted overnight, pt asymptomatic. Objective Last Vital Signs Temp 97.6 F 05/31/20 08:16 Pulse 76 05/31/20 08:16 Resp 17 05/31/20 08:16 BP 151/97 05/31/20 09:46 Pulse Ox 97 05/31/20 08:16 - Physical Examination General: No Apparent Distress HEENT: Positive: PERRL, Normocephaly, Mucus Membranes Moist Neck: Positive: neck supple, trachea midline Cardiac: Positive: Reg Rate and Rhythm, S1/S2 Lungs: Positive: Decreased Breath Sounds Neuro: Positive: Grossly Intact Abdomen: Negative: Tender Skin: Negative: Rash Musculoskeletal: No Pain Extremities: Present: +1 Edema (BLE) - Labs and Meds Comprehensive Metabolic Panel 05/31/20 Range/Units 04:57 Sodium 142 (137-145) mmol/L Potassium 3.8 (3.6-5.0) mmol/L Chloride 101.8 (98-107) mmol/L Carbon Dioxide 24 (22-30) mmol/L BUN 33 H (9-20) mg/dL Creatinine 1.8 H (0.8-1.3) mg/dL Glucose 103 H (75-100) mg/dL Calcium 9.3 (8.4-10.2) mg/dL - Imaging and Cardiology EKG: report reviewed, image reviewed Echo: report reviewed (05/2020: EF 35-40%, mild LVH, impaired relaxation, mild mitral leaflet calcification, s/p MV repair, mod MR, mod pulm HTN. 06/2018 showed EF 55%, severe MR. ) - Telemetry EKG Rhythm: Sinus Rhythm - EKG Sinus rhythms and dysrhythmias: sinus rhythm AV and intraventricular conduction: intraventricular conducti
--- NOTE | 2020-05-31 11:13 | Progress Note ---
Assessment and Plan - Patient Problems (1) Acute on chronic renal insufficiency Current Visit: Yes Status: Acute Plan to address problem: In the setting of A/C cardiorenal syndrome. Agree with aggressive diuretic regimen. Strict I/O, daily weight. Counseled on importance of low sodium diet and appropriate fluid restrictions. Will monitor daily. Overall renal function is stable. He is diuresing well. (2) Hypertensive chronic kidney disease with stage 1 through stage 4 chronic kidney disease, or unspecified chronic kidney disease Current Visit: Yes Status: Chronic Plan to address problem: Monitor blood pressures on current regimen. (3) Acute exacerbation of CHF (congestive heart failure) Current Visit: Yes Status: Acute Qualifiers: Heart failure type: combined systolic and diastolic Qualified Code(s): I50.43 - Acute on chronic combined systolic (congestive) and diastolic (congestive) heart failure Plan to address problem: Agree with aggressive IV diuretic regimen. Appreciate cardiology recommendations. (4) Anemia Current Visit: Yes Status: Chronic Qualifiers: Anemia type: unspecified type Qualified Code(s): D64.9 - Anemia, unspecified Plan to address problem: Transfuse to maintain Hgb>7.0. No acute signs of GI bleed noted. Anemia workup per primary attending. Iron studies noted. Pending FOBT collection at this time. Subjective Date of service: 05/31/20 Principal diagnosis: HF Interval history: No acute issues this am. Labs noted, and renal function stable. Diuresing well, and had stress test done today, pending results. Objective - Vital Signs Vital signs: Vital Signs - 12hr 05/31/20 05/31/20 05/31/20 03:00 03:41 08:16 Temperature 97.3 F L 97.6 F Pulse Rate 92 H 88 76 Respiratory 18 17 Rate Blood Pressure 144/104 139/86 Blood Pressure 150/96 [Right] O2 Sat by Pulse 100 100 97 Oximetry 05/31/20 05/31/20 05/31/20 09:06 09:18 09:40 Temperature Pulse Rate Respiratory Rate Blood Pressure 161/110 162/105 162/103 Blood Pressure [Right] O2 Sat by Pulse Oximetry 05/31/20 05/31/20 05/31/20 09:42 09:44 09:46 Temperature Pulse Rate Respiratory Rate Blood Pressure 146/87 146/91 151/97 Blood Pressure [Right] O2 Sat by Pulse Oximetry - General Appearance General appearance: well-developed, well-nourished, appears stated age EENT: ATNC Neck: no JVD, no thyromegaly Respiratory: Present: Clear to Ascultation Cardiology: regular Gastrointestinal: normal Integumentary: warm and dry Neurologic: no focal deficit Musculoskeletal: other (+edema ) Psychiatric: cooperative - Lab 05/30/20 05:47 05/31/20 04:57 Most recent lab results Calcium 9.3 mg/dL (8.4-10.2) 05/31/20 04:57 Magnesium 1.90 mg/dL (1.7-2.3) 05/29/20 14:35 Urine Creatinine 111.2 mg/dL (0.1-20.0) H 05/31/20 05:39 Urine Sodium 83 mmol/L 05/31/20 05:39 - Imaging Chest x-ray: report reviewed - Allied health notes Allied health notes reviewed: nursing Medications & Allergies - Medications Allergies/Adverse Reactions: Allergies No Known Allergies Allergy (Verified 10/24/15 00:53) Home Medications: Home Medications Medication Instructions Recorded Confirmed Last Taken Type Potassium Chloride [K-Dur] 20 meq PO QDAY #30 tablet 10/29/15 Unknown Rx amLODIPine 10 mg PO DAILY #30 tablet 10/29/15 Unknown Rx Aspirin EC [Ecotrin] 325 mg PO QDAY #30 tablet 05/29/20 Unknown Rx Furosemide [Lasix TAB] 40 mg PO BID #60 tablet 05/29/20 Unknown Rx Metoprolol [Lopressor TAB] 50 mg PO BID #60 tablet 05/29/20 Unknown Rx amLODIPine 10 mg PO NOW #30 tablet 05/29/20 Unknown Rx hydrALAZINE [Apresoline TAB] 50 mg PO BID #60 tablet 05/29/20 Unknown Rx Active Medications: Generic Name Dose Route Start Last Admin Trade Name Freq PRN Reason Stop Dose Admin Acetaminophen 650 mg 05/29/20 23:24 Tylenol PO Q4H PRN Pain MILD(1-3)/Fever >100.5/CARLSON Carvedilol 6.25 mg 05/30/20 22:00 05/31/20 10:50 Coreg PO 6.25 mg BID [facility] Administration Enoxaparin Sodium 30 mg 05/30/20 22:00 05/30/20 21:40 Enoxaparin SUB-Q 30 mg QDAY@2200 [facility] Administration Protocol Famotidine 10 mg 05/30/20 10:00 05/31/20 10:50 Pepcid PO 10 mg BID [facility] Administration Furosemide 40 mg 05/30/20 06:00 05/31/20 07:41 Lasix IV 40 mg 0600,1800 [facility] Administration Hydromorphone HCl 0.5 mg 05/29/20 23:24 Dilaudid IV Q3H PRN Pain , Severe (7-10) Ibuprofen 600 mg 05/29/20 23:24 Ibuprofen PO Q6H PRN Pain, Mild (1-3) Metoclopramide HCl 5 mg 05/29/20 23:41 Reglan IV Q6H PRN Nausea And Vomiting Ondansetron HCl 4 mg 05/29/20 23:24 Zofran IV Q8H PRN Nausea And Vomiting Oxycodone/Acetaminophen 1 tab 05/29/20 23:24 Percocet 5/325 PO Q6H PRN Pain, Moderate (4-6) Potassium Chloride 20 meq 05/31/20 10:00 05/31/20 10:49 K-Dur PO 20 meq QDAY [facility] Administration Sodium Chloride 10 ml 05/30/20 10:00 05/31/20 10:50 Sodium Chloride Flush Syringe 10 Ml IV 10 ml BID [facility] Administration Sodium Chloride 10 ml 05/29/20 23:24 Sodium Chloride Flush Syringe 10 Ml IV PRN PRN LINE FLUSH
[2020-05-31] MEDS: carvediloL 12.5 MG TAB PO SCH ×2 (13:20→22:04)
--- NOTE | 2020-05-31 13:38 | Progress Note ---
Assessment and Plan -- Acute exacerbation of systolic CHF (congestive heart failure) Patient initiated on IV Lasix twice a day Daily weights Intake output Echocardiogram showed ejection fraction 30-35% Cardiology consulted Status post stress test today showed no reversible ischemia --Iron deficiency anemia, chronic stool for occult blood is negative, iron study ordered showed low iron level with high iron binding capacity Start on iron supplements -- Hypertension Continue antihypertensives and adjust medications -- Acute kidney injury-cardiorenal syndrome? Likely acute on chronic kidney disease nephrology consulted, renal function stable -- severe MR, s/p MV repair in [place] in March, -- DVT prophylaxis On Lovenox and GI prophylaxis --Noncompliance, counseled 05/30: Continue IV Lasix, monitor ins and O's and daily weight. Cardiology consulted and follow recommendation. Plan for stress test tomorrow. 05/31; MPI stress test today showed no reversible ischemia. Continue medical management, if clinically stable possible discharge tomorrow Subjective Date of service: 05/31/20 Principal diagnosis: HF Interval history: Patient seen and examined. Medical records and medication list reviewed. No acute event overnight noted by the RN. Patient denies any chest pain, has minimal shortness of breath on exertion. Patient is tolerating diet. still has bilateral lower extremity swelling - but improved Discussed plan of care at bedside with patient. Objective - Exam Narrative Exam: GENERAL: well-developed and well-nourished -[place] male lying on bed appeared to be in no discomfort. HEENT: Normocephalic. Atraumatic. No conjunctival congestion or icterus. Patient has moist mucous membranes. NECK: Supple. Trachea midline. CHEST/LUNGS: Few crackles auscultated bilaterally, breathing nonlabored. No wheezes or rhonchi. HEART/CARDIOVASCULAR: Regular in rate and rhythm. S1 and S2 positive. ABDOMEN: Abdomen is soft, nontender. Patient has normal bowel sounds. SKIN: There is no rash. Warm and dry. NEURO: No focal motor deficit. Follows command. MUSCULOSKELETAL: No joint effusion or tenderness. EXTRIMITY: + Pitting edema bilaterally, no cyanosis or clubbing. PSYCH: Cooperative. - Constitutional Vitals: Vital Signs - 12hr 05/31/20 05/31/20 05/31/20 03:00 03:41 08:16 Temperature 97.3 F L 97.6 F Pulse Rate 92 H 88 76 Respiratory 18 17 Rate Blood Pressure 144/104 139/86 Blood Pressure 150/96 [Right] O2 Sat by Pulse 100 100 97 Oximetry 05/31/20 05/31/20 05/31/20 09:06 09:18 09:40 Temperature Pulse Rate Respiratory Rate Blood Pressure 161/110 162/105 162/103 Blood Pressure [Right] O2 Sat by Pulse Oximetry 05/31/20 05/31/20 05/31/20 09:42 09:44 09:46 Temperature Pulse Rate Respiratory Rate Blood Pressure 146/87 146/91 151/97 Blood Pressure [Right] O2 Sat by Pulse Oximetry 05/31/20 11:53 Temperature 98.2 F Pulse Rate 90 Respiratory 18 Rate Blood Pressure 138/96 Blood Pressure [Right] O2 Sat by Pulse 100 Oximetry - Labs CBC & Chem 7: 05/30/20 05:47 05/31/20 04:57 Labs: Abnormal lab results 05/30/20 05/31/20 05/31/20 Range/Units 16:29 04:57 05:39 BUN 33 H (9-20) mg/dL Creatinine 1.8 H (0.8-1.3) mg/dL Glucose 103 H (75-100) mg/dL Iron 16 L (49-181) ug/dL TIBC 457 H (250-450) mcg/dL Urine Creatinine 111.2 H (0.1-20.0) mg/dL Urine Chloride 70.1 L (110-250) mmolL HEART Score - HEART Score Age: > 65 Risk factors: > 3 risk factors or hx of atherosclerotic disease Troponin: < normal limit - Critical Actions Critical Actions: 4-6 pts:12-16.6% risk of adverse cardiac event. Should be admitted
--- NOTE | 2020-05-31 16:29 | Treadmill Report ---
NUCLEAR STRESS TEST REFERRING PHYSICIAN: Hospitalist PROTOCOL: The patient was brought to the stress lab in a postoperative state, given 10 mCi of technetium 99m at rest. The patient underwent rest imaging. The patient underwent Lexiscan stress test per standard protocol. At peak stress, the patient was given 26 mCi of technetium 99m. Shortly thereafter, the patient underwent stress imaging. INTERPRETATION: SPECT imaging examined carefully in horizontal long axis, vertical long axis, and short axis views. There is normal mitral uptake of radioisotope in all reported segments. No evidence of significant fixed or reversible perfusion defects suggestive of prior infarction or ischemia. LV is dilated with severe global left ventricular hypokinesis, with a calculated ejection fraction of 30%. CONCLUSIONS: 1. No evidence of significant ischemia or prior infarction. 2. Severe global left ventricular hypokinesis. Calculated ejection fraction of 30%. No TID. JOB# [id number] WES/DILMA
[2020-05-31] MEDS: ENOXAPARIN 30 MG/0.3 ML INJ SUB-Q SCH (22:04)
[2020-06-01] MEDS: FUROSEMIDE 40 MG/4 ML INJ IV SCH (05:42)
[2020-06-01] MEDS ORDERED: FERROUS GLUCONATE 324 MG TAB PO SCH (10:00)
[2020-06-01] MEDS: FAMOTIDINE 10 MG TAB PO SCH (10:34)
[2020-06-01] MEDS: POTASSIUM CHLORIDE ER 20 MEQ TAB PO SCH (10:34)
[2020-06-01] MEDS: carvediloL 12.5 MG TAB PO SCH (10:34)
--- NOTE | 2020-06-01 11:11 | Progress Note ---
Assessment and Plan Currently stable cardiac status. Cont coreg, no ACEI/ARB in setting of renal insufficiency. Pt may discharge from cardiology standpoint. At discharge, recommend home PO lasix dosage of 40mg BID. Recommend pt follow up in our office with Dr. Mohsen Carrillo (per pt request) within 1-2 weeks ([phone]). Pt states he will call and make his own appointment. The patient has been seen in conjunction with Dr. Mohsen Carrillo who agrees with the assessment and plan of care. - Patient Problems (1) Acute HFrEF (heart failure with reduced ejection fraction) Current Visit: Yes Status: Acute (2) Cardiomyopathy Current Visit: Yes Status: Acute (3) S/P mitral valve repair Current Visit: Yes Status: Chronic (4) Uncontrolled hypertension Current Visit: Yes Status: Acute (5) Acute on chronic renal insufficiency Current Visit: Yes Status: Acute (6) Anemia Current Visit: Yes Status: Chronic Qualifiers: Anemia type: unspecified type Qualified Code(s): D64.9 - Anemia, unspecified (7) Medical non-compliance Current Visit: Yes Status: Chronic (8) Transaminitis Current Visit: Yes Status: Acute Subjective Date of service: 06/01/20 Principal diagnosis: HF Interval history: pt resting up at bedside, feeing well today. in SR on tele, no acute events overnight. Objective Last Vital Signs Temp 98.8 F 06/01/20 07:48 Pulse 81 06/01/20 10:34 Resp 18 06/01/20 07:48 BP 112/69 06/01/20 10:34 Pulse Ox 100 06/01/20 07:48 - Physical Examination General: No Apparent Distress HEENT: Positive: PERRL, Normocephaly, Mucus Membranes Moist Neck: Positive: neck supple, trachea midline Cardiac: Positive: Reg Rate and Rhythm, S1/S2 Lungs: Positive: Decreased Breath Sounds Neuro: Positive: Grossly Intact Abdomen: Negative: Tender Skin: Negative: Rash Musculoskeletal: No Pain Extremities: Present: +1 Edema (BLE) - Imaging and Cardiology EKG: report reviewed, image reviewed Echo: report reviewed (05/2020: EF 35-40%, mild LVH, impaired relaxation, mild mitral leaflet calcification, s/p MV repair, mod MR, mod pulm HTN. 06/2018 showed EF 55%, severe MR. ) - EKG Sinus rhythms and dysrhythmias: sinus rhythm AV and intraventricular conduction: intraventricular conducti - Allied health notes Allied health notes reviewed: nursing
[2020-06-01 11:39] VITALS: BP 97/60
--- NOTE | 2020-06-01 11:46 | Discharge Summary ---
Providers - Providers Date of Admission: 05/31/20 14:28 Date of discharge: 06/01/20 Attending physician: LANE NGUYỄN 05/29/20 17:56 Consult to Physician [CONS] Urgent Comment: Consulting Provider: KLARISSA BAKER Physician Instructions: Reason For Exam: chf 05/30/20 10:39 Consult to Physician [CONS] Routine Comment: Consulting Provider: JUAN ADEN Physician Instructions: patient known to him Reason For Exam: shannon on ckd Primary care physician: APPETIZER PACKER Hospitalization Condition: Serious Hospital course: The pt is a 74 YO male with a past medical history of severe MR, s/p MV repair in [place] in March,, HFpEF, HTN, pulm HTN, renal insufficiency presented with c/o SOB, BLE swelling and generalized fatigue. His chest x-ray was suggestive for cardiomegaly with pulmonary vascular congestion. Patient was admitted to telemetry floor with scheduled iv diuretics. Monitored with serial CE, EKG. Cardiology consulted, 2d echo obtained which showed ejection fraction 30 to 35%. Provided cardiac diet, daily weights, monitored in's and O's. Patients symptom improved with medical management. He was further evaluated with a stress test which showed no reversible ischemia. Patient was then discharged home in stable condition with outpt f/u. Discharge diagnosis: -- Acute exacerbation of systolic CHF (congestive heart failure) Patient initiated on IV Lasix twice a day Daily weights Intake output Echocardiogram showed ejection fraction 30-35% Cardiology consulted Status post stress test today showed no reversible ischemia --Iron deficiency anemia, chronic stool for occult blood is negative, iron study ordered showed low iron level with high iron binding capacity Start on iron supplements -- Hypertension Continue antihypertensives and adjust medications -- Acute kidney injury-cardiorenal syndrome? Likely acute on chronic kidney disease nephrology consulted, renal function stable -- severe MR, s/p MV repair in [place] in March, -- DVT prophylaxis On Lovenox and GI prophylaxis --Noncompliance, counseled Disposition: [id number]/[place]-06 [address] [facility] Time spent for discharge: 34 minutes Core Measure Documentation - Palliative Care Palliative Care/ Comfort Measures: Not Applicable - Core Measures Any of the following diagnoses?: heart failure - Heart Failure Discharge Requirements Reason for no KATE/ARB: Renal impairment Beta callie at discharge: Yes Exam - Physical Exam Narrative exam: GENERAL: well-developed and well-nourished -[place] male lying on bed appeared to be in no discomfort. HEENT: Normocephalic. Atraumatic. No conjunctival congestion or icterus. Pat ient has moist mucous membranes. NECK: Supple. Trachea midline. CHEST/LUNGS: Few crackles auscultated bilaterally, breathing nonlabored. No wheezes or rhonchi. HEART/CARDIOVASCULAR: Regular in rate and rhythm. S1 and S2 positive. ABDOMEN: Abdomen is soft, nontender. Patient has normal bowel sounds. SKIN: There is no rash. Warm and dry. NEURO: No focal motor deficit. Follows command. MUSCULOSKELETAL: No joint effusion or tenderness. EXTRIMITY: + Pitting edema bilaterally, no cyanosis or clubbing. PSYCH: Cooperative. - Constitutional Vitals: Temp Pulse Resp BP Pulse Ox 98.8 F 77 16 97/60 100 06/01/20 07:48 06/01/20 11:37 06/01/20 11:37 06/01/20 11:37 06/01/20 11:37 Plan Activity: advance as tolerated Weight Bearing Status: Non-Weight Bearing Diet: low fat, low salt Special Instructions: restrict fluid intake to (1.2L per day) Follow up with: DEMAR BROWN MD [Staff Physician] - 3-5 Days GEOFFREY VILLARREAL MD [Staff Physician] - 3-5 Days CHRISTIANO NDIAYE MD [Staff Physician] - 3-5 Days JOSE ALFREDO COSBY MD [Staff Physician] - 3-5 Days CLEM LYNN MD [Staff Physician] - 3-5 Days Prescriptions: amLODIPine 10 mg PO NOW #30 tablet carvediloL [Coreg] 12.5 mg PO BID #60 tablet Aspirin EC [Ecotrin] 325 mg PO QDAY #30 tablet Ferrous Gluconate [Fergon 325 MG tab] 324 mg PO QDAY #30 tablet Potassium Chloride [K-Dur] 20 meq PO QDAY #30 tablet Furosemide [Lasix TAB] 40 mg PO BID #60 tablet
[2020-06-01] MEDS ORDERED: FUROSEMIDE 40 MG TAB PO SCH (18:00)
[2020-06-01] MEDS ORDERED: ENOXAPARIN 40 MG/0.4 ML INJ SUB-Q SCH (22:00)
== END 2020-06-01 14:22 | disposition home or self-care (01) | DRG 291 ==
LOC: ED 13:39 → 4A 17:55 → OBSVTOIN 05-31 14:28
PROVIDERS: ADMIT Internal Medicine; ATTEND Internal Medicine
DX: I13.0 Hypertensive heart and chronic kidney disease with heart failure and stage 1 through stage 4 chronic kidney disease, or unspecified chronic kidney disease (principal); I50.43 Acute on chronic combined systolic (congestive) and diastolic (congestive) heart failure; N17.9 Acute kidney failure, unspecified; I42.9 Cardiomyopathy, unspecified; Z79.82 Long term (current) use of aspirin; I34.0 Nonrheumatic mitral (valve) insufficiency; Z82.49 Family history of ischemic heart disease and other diseases of the circulatory system; I27.20 Pulmonary hypertension, unspecified; Z91.14 Patient's other noncompliance with medication regimen; N18.30 Chronic kidney disease, stage 3 unspecified; R74.01 Elevation of levels of liver transaminase levels; D50.9 Iron deficiency anemia, unspecified
CPT/HCPCS: 36415; 71046; 78452; 80048; 80053; 81001; 82270; 82436; 82550; 82570; 82607; 82747; 83036; 83550; 83735; 83880; 84300; 85025; 85027; 85610; 87641; 93005; 93017; 93306; 96374; 96375; G0378; A9502; J1650; J1940; J2785

== ENCOUNTER 2021-09-07 11:29 | Observation (INO) | payer MEDICARE ==
[2021-09-07] MEDS ORDERED: LACTATED RINGERS 1,000 ML IV ONE (13:24)
--- NOTE | 2021-09-07 13:25 | Emergency Department Report ---
ED General Adult HPI - General Chief complaint: Recheck/Abnormal Lab/Rx Stated complaint: ABN LABS/LOW BLOOD COUNT Time Seen by Provider: 09/07/21 13:04 Source: patient, RN notes reviewed, old records reviewed Mode of arrival: Ambulatory Limitations: No Limitations - History of Present Illness Initial comments: The patient was evaluated in the emergency department for symptoms described in the history of present illness. He/she was evaluated in the context of the global COVID-19 pandemic, which necessitated consideration that the patient might be at risk for infection with the virus that causes COVID-19. Institutional protocols and algorithms that pertain to the evaluation of patients at risk for COVID-19 are in a state of rapid change based on information released by regulatory bodies including the CDC and federal and state organizations. These policies and algorithms were followed during the patient's care in the emergency department. Please note that these policies, procedures and recommendations changed on a rapid basis. Primary CARE doctor: Dr. Staley Past medical history: Mitral regurgitation, status post mitral valve repair in [place], 2019, heart failure with reduced ejection fraction, EF 35 to 40%, pulmonary hypertension, and renal insufficiency. Patient also has a history of iron deficiency anemia. Patient has not had screening colonoscopy or prostate evaluation that he is aware of. He denies a personal/family history of cancer/malignancy. The patient is a 76-year-old gentleman who was instructed to return/present to the emergency room by his primary care doctor for abnormal laboratory studies. Patient reports that he had routine laboratory studies drawn by his outpatient primary care doctor, and was informed that "my blood counts are low." The patient complains of mild shortness of breath, but he thinks that this is chronic. He denies hematemesis and bright red blood per rectum. He denies physical pain. He states that he feels "a little tired", but denies loss of taste and smell, and further endorses that if he were not instructed to present to the emergency room today by his primary care doctor, he himself would not have presented otherwise. -: Gradual, days(s), week(s) Consistency: intermittent Improves with: rest Worsens with: movement - Related Data Previous Rx's Medication Instructions Recorded Last Taken Type Aspirin EC [Ecotrin] 325 mg PO QDAY #30 tablet 05/29/20 Unknown Rx Furosemide [Lasix TAB] 40 mg PO BID #60 tablet 05/29/20 Unknown Rx amLODIPine 10 mg PO NOW #30 tablet 05/29/20 Unknown Rx Ferrous Gluconate [Fergon 325 MG 324 mg PO QDAY #30 tablet 06/01/20 Unknown Rx tab] Potassium Chloride [K-Dur] 20 meq PO QDAY #30 tablet 06/01/20 Unknown Rx carvediloL [Coreg] 12.5 mg PO BID #60 tablet 06/01/20 Unknown Rx Allergies Allergy/AdvReac Type Severity Reaction Status Date / Time No Known Allergies Allergy Verified 10/24/15 00:53 ED Review of Systems ROS: Stated complaint: ABN LABS/LOW BLOOD COUNT Other details as noted in HPI Constitutional: denies: fever Eyes: denies: eye discharge ENT: denies: other Respiratory: shortness of breath Cardiovascular: denies: chest pain Gastrointestinal: denies: nausea, vomiting, hematemesis, melena, hematochezia Genitourinary: denies: dysuria Musculoskeletal: denies: back pain Neurological: denies: weakness Hematological/Lymphatic: denies: easy bleeding ED Past Medical Hx - Past Medical History Hx Hypertension: Yes Hx Heart Attack/AMI: Yes Hx Congestive Heart Failure: Yes Hx Renal Disease: Yes - Surgical History Hx Open Heart Surgery: Yes Additional Surgical History: Open heart surgery - Social History Smoking Status: Never Smoker - Medications Home Medications: Home Medications Medication Instructions Recorded Confirmed Last Taken Type Aspirin EC [Ecotrin] 325 mg PO QDAY #30 tablet 05/29/20 Unknown Rx Furosemide [Lasix TAB] 40 mg PO BID #60 tablet 05/29/20 Unknown Rx amLODIPine 10 mg PO NOW #30 tablet 05/29/20 Unknown Rx Ferrous Gluconate [Fergon 325 MG 324 mg PO QDAY #30 tablet 06/01/20 Unknown Rx tab] Potassium Chloride [K-Dur] 20 meq PO QDAY #30 tablet 06/01/20 Unknown Rx carvediloL [Coreg] 12.5 mg PO BID #60 tablet 06/01/20 Unknown Rx ED Physical Exam - General Limitations: No Limitations General appearance: alert, in no apparent distress - Head Head exam: Present: atraumatic, normocephalic - Eye Eye exam: Present: normal appearance, EOMI, other (Bilateral conjunctiva are pale). Absent: nystagmus - ENT ENT exam: Present: normal exam, normal orophraynx, mucous membranes moist, no rmal external ear exam - Neck Neck exam: Present: normal inspection, full ROM. Absent: tenderness, meningismus - Respiratory Respiratory exam: Present: normal lung sounds bilaterally. Absent: respiratory distress, wheezes, rales, rhonchi, stridor, decreased breath sounds - Cardiovascular Cardiovascular Exam: Present: regular rate, normal rhythm, tachycardia, normal heart sounds. Absent: bradycardia, irregular rhythm, systolic murmur, diastolic murmur, rubs, gallop - GI/Abdominal GI/Abdominal exam: Present: soft. Absent: distended, tenderness, guarding, rebound, rigid, pulsatile mass - Rectal Rectal exam: Present: normal inspection, normal rectal tone, heme (-) stool, other (Chaperoned SONAM Colón). Absent: heme (+) stool, black stool, bloody stool - Extremities Exam Extremities exam: Present: normal inspection, full ROM, other (2+ pulses noted in the bilateral upper and lower extremities. There is no palpable cord. negative Homans sign. Muscular compartments are soft. The pelvis is stable.). Absent: pedal edema, calf tenderness - Back Exam Back exam: Present: normal inspection - Neurological Exam Neurological exam: Present: alert, oriented X3 - Psychiatric Psychiatric exam: Present: normal affect, normal mood - Skin Skin exam: Present: warm, dry, intact, normal color. Absent: rash ED Course Vital Signs 09/07/21 12:37 Temperature 97.9 F Pulse Rate 93 H Respiratory 18 Rate Blood Pressure 134/64 O2 Sat by Pulse 98 Oximetry - Reevaluation(s) Reevaluation #1: 09/07/21 14:17 Differential diagnosis, including but not limited to: Iron deficiency anemia, noncompliance, electrolyte derangement, thyroid derangement Assessment and plan: 76-year-old gentleman, with multiple medical comorbidities, who has pale conjunctiva, with a known history of iron deficiency anemia, presenting with probable manifestations/symptoms of iron deficiency anemia. Laboratory studies ordered and are pending. The patient has no physical pain. EKG is pending. Patient ambivalent about whether or not he would like to receive a packed red blood cell transfusion. Patient expressed interest in outpatient therapies, such as iron infusions. We are awaiting his laboratory studies and EKG, and will make further recommendations. Lung sounds clear at this time 09/07/21 14:38 Laboratory studies demonstrate profound microcytic anemia and worsening renal insufficiency. Have canceled/discontinue patient's IV fluids. I have discussed this with the patient. Recommend admission to the medical service for medical optimization. Patient is agreeable to this plan of care. Admitted to the hospital physician, Dr. Calhoun ED Medical Decision Making - Lab Data Result diagrams: 09/07/21 13:30 09/07/21 13:30 Vital Signs 09/07/21 12:37 Temperature 97.9 F Pulse Rate 93 H Respiratory 18 Rate Blood Pressure 134/64 O2 Sat by Pulse 98 Oximetry Lab Results 09/07/21 09/07/21 09/07/21 Range/Units 13:30 13:30 13:30 WBC 6.9 (4.5-11.0) K/mm3 RBC 2.71 L (3.65-5.03) M/mm3 Hgb 4.9 L* (11.8-15.2) gm/dl Hct 17.6 L* (35.5-45.6) % MCV 65 L (84-94) fl MCH 18 L (28-32) pg MCHC 28 L (32-34) % RDW 19.0 H (13.2-15.2) % Plt Count 166 (140-440) K/mm3 Lymph % (Auto) 12.5 L (13.4-35.0) % [place] % (Auto) 4.1 (0.0-7.3) % Eos % (Auto) 0.7 (0.0-4.3) % Baso % (Auto) 0.8 (0.0-1.8) % Lymph # (Auto) 0.9 L (1.2-5.4) K/mm3 [place] # (Auto) 0.3 (0.0-0.8) K/mm3 Eos # (Auto) 0.0 (0.0-0.4) K/mm3 Baso # (Auto) 0.1 (0.0-0.1) K/mm3 Seg Neutrophils % 81.9 H (40.0-70.0) % Seg Neutrophils # 5.7 (1.8-7.7) K/mm3 Sodium 141 (137-145) mmol/L Potassium 5.0 (3.6-5.0) mmol/L Chloride 106.8 (98-107) mmol/L Carbon Dioxide 22 (22-30) mmol/L Anion Gap 17 mmol/L BUN 23 H (9-20) mg/dL Creatinine 2.1 H (0.8-1.3) mg/dL Estimated GFR 37 ml/min BUN/Creatinine Ratio 11 % Glucose 100 (75-100) mg/dL Calcium 9.6 (8.4-10.2) mg/dL Iron 14 L (49-181) ug/dL TIBC 463 H (250-450) mcg/dL Total Bilirubin 0.40 (0.1-1.2) mg/dL AST 25 (5-40) units/L ALT 10 (7-56) units/L Alkaline Phosphatase 49 (35-129) units/L Total Protein 7.3 (6.3-8.2) g/dL Albumin 4.1 (3.9-5) g/dL Albumin/Globulin Ratio 1.3 % - EKG Data -: EKG Interpreted by [facility] - EKG Data 09/07/21 14:58 EKG is interpreted at 14: 48 Sinus rhythm, rate 98 bpm. Extreme rightward axis deviation. Motion artifact. Poor R wave progression. QTc 4 9 3 ms. PVCs. Abnormal EKG. Not a STEMI. Critical Care Time: Yes Critical care time in (mins) excluding proc time.: 35 Critical care attestation.: If time is entered above; I have spent that time in minutes in the direct care of this critically ill patient, excluding procedure time. ED Disposition Clinical Impression: Chronic kidney disease, Microcytic anemia, Symptomatic anemia Disposition: ADMITTED INPATIENT Is pt being admited?: Yes Does the pt Need Aspirin: No Condition: Good Referrals: PRIMARY CARE, [Primary Care Provider] - 3-5 Days
[2021-09-07 14:21] LABS: Basophils # (Auto) 0.1 K/mm3 (0.0-0.1); Basophils % (Auto) 0.8 % (0.0-1.8); Eosinophils % (Auto) 0.7 % (0.0-4.3); Lymphocytes # (Auto) 0.9 K/mm3 (1.2-5.4); Lymphocytes % (Auto) 12.5 % (13.4-35.0); Mean Corpuscular HGB Conc 28 % (32-34); Monocytes # (Auto) 0.3 K/mm3 (0.0-0.8); Monocytes % (Auto) 4.1 % (0.0-7.3); Platelet Count 166 K/mm3 (140-440); Red Blood Count 2.71 M/mm3 (3.65-5.03)
[2021-09-07 14:22] LABS: Mean Corpuscular Volume 65 fl (84-94)
[2021-09-07 14:27] LABS: Hematocrit 17.6 % (35.5-45.6); Hemoglobin 4.9 gm/dl (11.8-15.2)
[2021-09-07 14:31] LABS: Albumin 4.1 g/dL (3.9-5); Calcium 9.6 mg/dL (8.4-10.2)
[2021-09-07 14:32] LABS: Iron 14 ug/dL (49-181); Total Iron Binding Capacity 463 mcg/dL (250-450)
[2021-09-07] MEDS ORDERED: SODIUM CHLORIDE 0.9% 500 ML 500 ML IV ONE ×2 (14:36→19:43)
--- NOTE | 2021-09-07 14:38 | History and Physical Report ---
History of Present Illness Chief complaint: My blood counts are low History of present illness: 76 YO Male with MR S/P MVR on Aspirin, HTN, CHF (EF 35%), HTN, MO presents to ED for evaluation. Patient reports "my blood counts are low". Patient states that he was seen and evaluated by his primary care physician and underwent routine labs and was found to have low blood counts. Patient knowledges generalized weakness, shortness of breath, decreased exercise tolerance, fatigue. Patient transported to [facility] via private vehicle for further care and evaluation of the aforementioned symptoms. The patient was seen and evaluated in the emergency department. All lab and imaging studies reviewed. The patient was found to have a hemoglobin of 4, acute kidney injury. Patient placed in observation status and admitted to medical floor for symptomatic anemia. Patient transfused with packed red blood cells. Patient denies fever, chills, chest pain, palpitation or productive cough, skin rash or recent contact, known exposure to COVID-19. Prior admission on 05/31/2020 reviewed. All medication listed at time of admission has reconciled. Advanced care planning conducted in ED. Past History Past Medical History: acute MO, heart failure, hypertension, other (See HPI) Past Surgical History: valve replacement Social history: single. denies: smoking, alcohol abuse Family history: hypertension Medications and Allergies Allergies Allergy/AdvReac Type Severity Reaction Status Date / Time No Known Allergies Allergy Verified 10/24/15 00:53 Home Medications Medication Instructions Recorded Confirmed Last Taken Type Aspirin EC [Ecotrin] 325 mg PO QDAY #30 tablet 05/29/20 Unknown Rx Furosemide [Lasix TAB] 40 mg PO BID #60 tablet 05/29/20 Unknown Rx amLODIPine 10 mg PO NOW #30 tablet 05/29/20 Unknown Rx Ferrous Gluconate [Fergon 325 MG 324 mg PO QDAY #30 tablet 06/01/20 Unknown Rx tab] Potassium Chloride [K-Dur] 20 meq PO QDAY #30 tablet 06/01/20 Unknown Rx carvediloL [Coreg] 12.5 mg PO BID #60 tablet 06/01/20 Unknown Rx Exam - Constitutional Vitals: Temp Pulse Resp BP Pulse Ox 97.9 F 93 H 18 134/64 98 09/07/21 12:37 09/07/21 12:37 09/07/21 12:37 09/07/21 12:37 09/07/21 12:37 General appearance: Present: mild distress - EENT Eyes: Present: PERRL (Conjunctival pallor) ENT: hearing intact, clear oral mucosa - Neck Neck: Present: supple, normal ROM - Respiratory Respiratory effort: normal Respiratory: bilateral: CTA - Cardiovascular Heart Sounds: Present: S1 & S2. Absent: rub, click - Extremities Extremities: pulses symmetrical, No edema Peripheral Pulses: within normal limits - Abdominal General gastrointestinal: Present: soft, non-tender, non-distended, normal bowel sounds Male genitourinary: Present: normal - Integumentary Integumentary: Present: clear, warm, dry - Musculoskeletal Musculoskeletal: generalized weakness - Psychiatric Psychiatric: appropriate mood/affect, intact judgment & insight - Neurologic Neurologic: CNII-XII intact, moves all extremities Results - Labs CBC & Chem 7: 09/07/21 13:30 09/07/21 13:30 Labs: Abnormal lab results 09/07/21 09/07/21 09/07/21 Range/Units 13:30 13:30 13:30 RBC 2.71 L (3.65-5.03) M/mm3 Hgb 4.9 L* (11.8-15.2) gm/dl Hct 17.6 L* (35.5-45.6) % MCV 65 L (84-94) fl MCH 18 L (28-32) pg MCHC 28 L (32-34) % RDW 19.0 H (13.2-15.2) % Lymph % (Auto) 12.5 L (13.4-35.0) % Lymph # (Auto) 0.9 L (1.2-5.4) K/mm3 Seg Neutrophils % 81.9 H (40.0-70.0) % BUN 23 H (9-20) mg/dL Creatinine 2.1 H (0.8-1.3) mg/dL Iron 14 L (49-181) ug/dL TIBC 463 H (250-450) mcg/dL Assessment and Plan - Patient Problems (1) Symptomatic anemia Current Visit: Yes Status: Acute Plan to address problem: Packed red blood cell transfusion, iron replacement therapy, supportive care. (2) CHF (congestive heart failure) Current Visit: Yes Status: Acute Qualifiers: Heart failure chronicity: chronic Plan to address problem: No acute exacerbation at this time, blood pressure control, continue medical management, afterload reduction, blood pressure control. (3) Chronic kidney disease Current Visit: Yes Status: Acute Plan to address problem: Supportive care, outpatient nephrology follow-up, continue medical management. Avoid nephrotoxic agents. (4) DVT prophylaxis Current Visit: Yes Status: Acute Plan to address problem: SCD to bilateral lower extremities while in bed, patient is ambulatory (5) Advance care planning Current Visit: Yes Status: Acute Plan to address problem: Disease education conducted, care plan discussed, diagnosis discussed, prognosis discussed, patient is full code. Patient acknowledges understanding and agreement with care plan, +30 minutes.
[2021-09-07] MEDS ORDERED: oxyCODONE /ACETAMINOPHEN 5-325MG TAB PO PRN (14:39)
[2021-09-07] MEDS ORDERED: HYDROmorphone 1 MG/1 ML INJ IV PRN (14:39)
[2021-09-07] MEDS ORDERED: ONDANSETRON 4 MG/2 ML INJ IV PRN (14:39)
[2021-09-07] MEDS ORDERED: ACETAMINOPHEN 325 MG TAB PO PRN (14:39)
[2021-09-07] MEDS ORDERED: ALBUTEROL 2.5 MG/3 ML NEBU IH PRN (14:39)
[2021-09-07] MEDS ORDERED: SENNOSIDES/DOCUSATE SODIUM 8.6/50 MG TAB PO PRN (14:41)
[2021-09-07] MEDS ORDERED: FUROSEMIDE 40 MG TAB PO SCH (22:00)
[2021-09-07] MEDS: FERROUS SULFATE 325 MG TAB PO SCH (23:05)
[2021-09-07] MEDS: carvediloL 12.5 MG TAB PO SCH (23:05)
[2021-09-08 00:14] LABS: Hematocrit 20.3 % (35.5-45.6); Hemoglobin 6.1 gm/dl (11.8-15.2)
[2021-09-08] MEDS ORDERED: SODIUM CHLORIDE 0.9% 500 ML 500 ML IV SCH (03:27)
--- NOTE | 2021-09-08 08:37 | Progress Note ---
Assessment and Plan Assessment and plan: #Symptomatic anemia-improving -Initial hemoglobin 4.9, improved to 6.1 after 2 units -2 more units to be transfused -No overt bleeding at this time -Transfuse for hemoglobin less than 7 #Heart failure with reduced ejection fraction -Continue Coreg, Lasix #Mitral regurgitation status post mitral valve repair #Hypertension -Controlled, continue beta-callie #JOSÉ MIGUEL on CKD -Last visit creatinine 1.8 (05/2020), currently 2.1 -Avoid nephrotoxins, renally dose medications -will continue to monitor History Interval history: No acute events overnight. Patient reports improvement in fatigue and shortness of breath. No complaints at this time. Hospitalist Physical - Physical exam Narrative exam: GENERAL: Well-developed well-nourished. In no acute distress. HEENT: Normocephalic. Atraumatic. CHEST/LUNGS: CTAB on room air HEART/CARDIOVASCULAR: RRR. +systolic murmur at LLSB. No rubs or gallops appreciated. ABDOMEN: +BS. NT/ND. SKIN: No rashes noted. NEURO: No focal motor deficit. Follows all commands and is ambulatory. MUSCULOSKELETAL: No joint effusion EXTREMITIES: No cyanosis, clubbing or edema. PSYCH: Cooperative. - Constitutional Vitals: Temp Pulse Resp BP Pulse Ox 98.3 F 66 18 129/82 96 09/08/21 06:09 09/08/21 06:09 09/08/21 06:09 09/08/21 06:09 09/08/21 06:09 General appearance: Present: mild distress Results - Labs CBC & Chem 7: 09/08/21 10:43 09/07/21 13:30 Labs: Laboratory Last Values WBC 6.9 K/mm3 (4.5-11.0) 09/07/21 13:30 RBC 2.71 M/mm3 (3.65-5.03) L 09/07/21 13:30 Hgb 6.1 gm/dl (11.8-15.2) L 09/07/21 23:06 Hct 20.3 % (35.5-45.6) L 09/07/21 23:06 MCV 65 fl (84-94) L 09/07/21 13:30 MCH 18 pg (28-32) L 09/07/21 13:30 MCHC 28 % (32-34) L 09/07/21 13:30 RDW 19.0 % (13.2-15.2) H 09/07/21 13:30 Plt Count 166 K/mm3 (140-440) 09/07/21 13:30 Lymph % (Auto) 12.5 % (13.4-35.0) L 09/07/21 13:30 Burke % (Auto) 4.1 % (0.0-7.3) 09/07/21 13:30 Eos % (Auto) 0.7 % (0.0-4.3) 09/07/21 13:30 Baso % (Auto) 0.8 % (0.0-1.8) 09/07/21 13:30 Lymph # (Auto) 0.9 K/mm3 (1.2-5.4) L 09/07/21 13:30 Burke # (Auto) 0.3 K/mm3 (0.0-0.8) 09/07/21 13:30 Eos # (Auto) 0.0 K/mm3 (0.0-0.4) 09/07/21 13:30 Baso # (Auto) 0.1 K/mm3 (0.0-0.1) 09/07/21 13:30 Seg Neutrophils % 81.9 % (40.0-70.0) H 09/07/21 13:30 Seg Neutrophils # 5.7 K/mm3 (1.8-7.7) 09/07/21 13:30 Sodium 141 mmol/L (137-145) 09/07/21 13:30 Potassium 5.0 mmol/L (3.6-5.0) 09/07/21 13:30 Chloride 106.8 mmol/L (98-107) 09/07/21 13:30 Carbon Dioxide 22 mmol/L (22-30) 09/07/21 13:30 Anion Gap 17 mmol/L 09/07/21 13:30 BUN 23 mg/dL (9-20) H 09/07/21 13:30 Creatinine 2.1 mg/dL (0.8-1.3) H 09/07/21 13:30 Estimated GFR 37 ml/min 09/07/21 13:30 BUN/Creatinine Ratio 11 % 09/07/21 13:30 Glucose 100 mg/dL (75-100) 09/07/21 13:30 Calcium 9.6 mg/dL (8.4-10.2) 09/07/21 13:30 Iron 14 ug/dL (49-181) L 09/07/21 13:30 TIBC 463 mcg/dL (250-450) H 09/07/21 13:30 Ferritin 10.3 ng/mL (30.0-300.0) L 09/07/21 13:30 Total Bilirubin 0.40 mg/dL (0.1-1.2) 09/07/21 13:30 AST 25 units/L (5-40) 09/07/21 13:30 ALT 10 units/L (7-56) 09/07/21 13:30 Alkaline Phosphatase 49 units/L (35-129) 09/07/21 13:30 Total Protein 7.3 g/dL (6.3-8.2) 09/07/21 13:30 Albumin 4.1 g/dL (3.9-5) 09/07/21 13:30 Albumin/Globulin Ratio 1.3 % 09/07/21 13:30 TSH 2.150 mlU/mL (0.270-4.200) 09/07/21 13:30 Blood Type B POSITIVE 09/07/21 13:39 Antibody Screen Negative 09/07/21 13:39 Crossmatch See Detail 09/07/21 13:39 Degroot/IV: Voiding Method Toilet Active Medications - Current Medications Current Medications: Generic Name Dose Route Start Last Admin Trade Name Freq PRN Reason Stop Dose Admin Acetaminophen 650 mg 09/07/21 14:39 Acetaminophen 325 Mg Tab PO Q4H PRN Pain MILD(1-3)/Fever >100.5/CARLSON Albuterol 2.5 mg 09/07/21 14:39 Albuterol 2.5 Mg/3 Ml Nebu IH Q4HRT PRN Shortness Of Breath Aspirin 325 mg 09/08/21 10:00 Aspirin Ec 325 Mg Tab PO QDAY CHELSEY Carvedilol 12.5 mg 09/07/21 22:00 09/07/21 23:05 Carvedilol 12.5 Mg Tab PO 12.5 mg BID CHELSEY Administration Ferrous Sulfate 325 mg 09/07/21 22:00 09/07/21 23:05 Ferrous Sulfate 325 Mg Tab PO 325 mg BID CHELSEY Administration Furosemide 40 mg 09/08/21 08:00 Furosemide 40 Mg Tab PO BID@0600,1800 CHELSEY Hydromorphone HCl 0.5 mg 09/07/21 14:39 Hydromorphone 1 Mg/1 Ml Inj IV Q23H PRN Pain , Severe (7-10) Sodium Chloride 500 mls @ 50 mls/hr 09/08/21 03:27 Nacl 0.9% 500 Ml IV DIRECT CHELSEY Ondansetron HCl 4 mg 09/07/21 14:39 Ondansetron 4 Mg/2 Ml Inj IV Q8H PRN Nausea And Vomiting Oxycodone/Acetaminophen 1 tab 09/07/21 14:39 Oxycodone /Acetaminophen 5-325mg Tab PO Q16H PRN Pain, Moderate (4-6) Potassium Chloride 20 meq 09/08/21 10:00 Potassium Chloride Er 20 Meq Tab PO QDAY CHELSEY Senna/Docusate Sodium 2 tab 09/07/21 14:41 Sennosides/Docusate Sodium 8.6/50 Mg Tab PO Q12H PRN Laxative Effect Sodium Chloride 10 ml 09/07/21 22:00 09/07/21 23:06 Sodium Chloride 0.9% 10 Ml Flush Syringe IV 10 ml BID CHELSEY Administration Sodium Chloride 10 ml 09/07/21 14:39 Sodium Chloride 0.9% 10 Ml Flush Syringe IV PRN PRN LINE FLUSH
[2021-09-08] MEDS: FERROUS SULFATE 325 MG TAB PO SCH ×2 (09:17→22:05)
[2021-09-08] MEDS: carvediloL 12.5 MG TAB PO SCH ×2 (09:17→22:06)
[2021-09-08] MEDS: ASPIRIN EC 325 MG TAB PO SCH (09:17)
[2021-09-08] MEDS: POTASSIUM CHLORIDE ER 20 MEQ TAB PO SCH (09:17)
[2021-09-08] MEDS: FUROSEMIDE 40 MG TAB PO SCH ×2 (09:18→18:39)
[2021-09-08 11:23] LABS: Eosinophils # (Auto) 0.4 K/mm3 (0.0-0.4); Eosinophils % (Auto) 7.1 % (0.0-4.3); Hematocrit 20.6 % (35.5-45.6); Hemoglobin 6.1 gm/dl (11.8-15.2); Lymphocytes # (Auto) 1.1 K/mm3 (1.2-5.4); Lymphocytes % (Auto) 21.3 % (13.4-35.0); Mean Corpuscular HGB Conc 30 % (32-34); Monocytes # (Auto) 0.4 K/mm3 (0.0-0.8); Monocytes % (Auto) 7.8 % (0.0-7.3); Platelet Count 142 K/mm3 (140-440); Red Blood Count 3.07 M/mm3 (3.65-5.03)
[2021-09-08 11:35] LABS: Mean Corpuscular Volume 67 fl (84-94); Red Cell Distribution Width 21.4 % (13.2-15.2)
[2021-09-08 18:39] LABS: Hematocrit 24.9 % (35.5-45.6); Hemoglobin 7.7 gm/dl (11.8-15.2)
[2021-09-09] MEDS: FUROSEMIDE 40 MG TAB PO SCH (06:17)
[2021-09-09 06:31] LABS: Hematocrit 22.7 % (35.5-45.6); Mean Corpuscular HGB Conc 31 % (32-34)
[2021-09-09 06:37] LABS: Mean Corpuscular Volume 69 fl (84-94); Platelet Count 131 K/mm3 (140-440); Red Cell Distribution Width 22.9 % (13.2-15.2)
[2021-09-09 06:42] LABS: Calcium 8.7 mg/dL (8.4-10.2)
--- NOTE | 2021-09-09 07:48 | Discharge Summary ---
Providers - Providers Date of Admission: 09/07/21 14:39 Attending physician: JOSIAH WALTON MD Primary care physician: [facility]ER[facility] Hospitalization Condition: Good Exam - Constitutional Vitals: Temp Pulse Resp BP Pulse Ox 98.7 F 60 18 119/60 98 09/09/21 04:54 09/09/21 06:17 09/09/21 04:54 09/09/21 06:17 09/09/21 06:17 Plan Care Plan Goals: Follow-up with your primary care doctor within 1 week. If you have not had a colonoscopy within the last 10 years please get one. Please start taking iron supplementation every day. Your labs have shown that you have iron deficiency. Follow up with: PRIMARY CARE, [Primary Care Provider] - 3-5 Days Prescriptions: RX: Ferrous Sulfate [Feosol 325 MG tab] 325 mg PO QDAY 30 Days #30 tablet
[2021-09-09] MEDS: FERROUS SULFATE 325 MG TAB PO SCH (09:07)
[2021-09-09] MEDS: POTASSIUM CHLORIDE ER 20 MEQ TAB PO SCH (09:07)
[2021-09-09] MEDS: ASPIRIN EC 325 MG TAB PO SCH (09:08)
[2021-09-09] MEDS: carvediloL 12.5 MG TAB PO SCH (09:08)
[2021-09-09 09:09] VITALS: BP 92/54
== END 2021-09-09 13:56 | disposition home or self-care (01) ==
LOC: ED 11:29 → 3A 14:39
PROVIDERS: ADMIT Internal Medicine; ATTEND Student in an Organized Health Care Education/Training Program
DX: D64.9 Anemia, unspecified (principal); N17.9 Acute kidney failure, unspecified; I13.0 Hypertensive heart and chronic kidney disease with heart failure and stage 1 through stage 4 chronic kidney disease, or unspecified chronic kidney disease; I50.20 Unspecified systolic (congestive) heart failure; N18.9 Chronic kidney disease, unspecified; I34.0 Nonrheumatic mitral (valve) insufficiency; I25.2 Old myocardial infarction; Z79.899 Other long term (current) drug therapy; Z98.890 Other specified postprocedural states; Z79.82 Long term (current) use of aspirin
CPT/HCPCS: 36415; 36430; 80048; 80053; 82728; 83550; 83735; 84443; 85014; 85018; 85025; 85027; 86850; 86900; 86901; 86920; 93005; 99291; G0378; J7120; P9016